=== PATIENT | female | born 1950 | race Caucasian/White ===

== ENCOUNTER 2021-02-18 15:40 | Outpatient (CLI) | payer MEDICARE, SELFPAY ==
--- NOTE | ~2021-02-18 | MM_ITS ---
EXAMINATION: MM screening joyce BI w oneyda HISTORY: Screening TECHNIQUE: Craniocaudal and mediolateral oblique 3-D tomosynthesis images were obtained and synthetic 2-D images were generated. CAD analysis was submitted and interpreted. COMPARISON: Comparison to multiple prior studies sequentially, with oldest reviewed study dated 06/13. BREAST PARENCHYMAL COMPOSITION: The breasts are heterogeneously dense, which may obscure small masses . FINDINGS: There is no evidence of suspicious mass, calcification, or architectural distortion to sugg est malignancy in either breast. There has been no suspicious interval change. IMPRESSION: 1. No mammographic evidence of malignancy. 2. Recommend routine screening mammography in one year. BI-RADS Category 1: Negative Reviewed, dictated and finalized at location A.
== END 2021-02-18 15:41 | disposition home or self-care (01) ==
PROVIDERS: PCP Family Medicine; Visit Provider Nurse Practitioner
DX: Z12.31 Encounter for screening mammogram for malignant neoplasm of breast (principal)
CPT/HCPCS: 77063; 77067

== ENCOUNTER → 2021-03-28 11:48 | Outpatient (CLI) | payer MEDICARE, SELFPAY ==
--- NOTE | ~2021-03-28 | XR_ITS ---
EXAMINATION: XR shoulder RT min 2V DATE: 03/28/2021 12:36 INDICATION: Right shoulder pain post recent fall TECHNIQUE: AP internally and externally rotated, AP oblique externally rotated and axillary views of the right shoulder were obtained. COMPARISON: None FINDINGS: Normal alignment. No fracture. Glenohumeral joint is normal. Acromioclavicular joint is normal. Soft tissues are unremarkable. Visualized portion of the lungs are clear. IMPRESSION: Negative right shoulder radiographs. Reviewed, dictated and finalized at location A.
== END ==
PROVIDERS: PCP Family Medicine; Visit Provider Nurse Practitioner
DX: M25.511 Pain in right shoulder (principal)
CPT/HCPCS: 73030

== ENCOUNTER 2021-04-09 15:10 | Outpatient (CLI) | payer MEDICARE, SELFPAY ==
--- NOTE | ~2021-04-09 | DEXA_ITS ---
Bone Density Report Name: Antony Harp Age: 70 Sex: Female Ethnicity: White Date of : 1950 Indication: osteopenia; cancer; hysterectomy; Referring Provider: ALBERTO, CRISTINE Study: Bone densitometry was performed. Exam Date: April 09, 2021 Accession number: [id number] Bone Density: Region BMD T-score Z-score Classification AP Spine (L1, L2, L3) 0.839 -1.6 0.3 Osteopenia Femoral Neck (Left) 0.625 -2.0 -0.3 Osteopenia Total Hip (Left) 0.741 -1.6 -0.2 Osteopenia Total Hip Bilateral Avg 0.760 -1.5 -0.1 Osteopenia Femoral Neck (Right) 0.648 -1.8 -0.1 Osteopenia Total Hip (Right) 0.778 -1.3 0.1 Osteopenia World Health Organization criteria for BMD impression classify patients as: Normal (T-score at or above -1.0), Osteopenia (T-score between -1.0 and -2.5), or Osteoporosis (T-score at or below -2.5). 10-year Fracture Risk(1): Major Osteoporotic Fracture 11% Hip Fracture 1.9% Reported Risk Factors: [place] (), Neck BMD=0.625, BMI=24.2 (1) FRAX(R) Version 3.08. Fracture probability calculated for an untreated patient. Fracture probability may be lower if the patient has received treatment. Previous Exams: Region Exam Age BMD T-score BMD Change BMD Change Date g/cm2 vs Baseline vs Previous AP Spine(L1, L2, L3) 04/09/2021 70 0.839 -1.6 0.044(5.5%)# 0.060(7.6%)* 02/15/2017 66 0.780 -2.2 -0.016(-2.0%)# -0.016(-2.0%)# 07/13/2013 62 0.795 -2.0 Total Hip(Left) 04/09/2021 70 0.741 -1.6 -0.013(-1.7%)# -0.062(-7.7%)* 02/15/2017 66 0.803 -1.1 0.049(6.5%)# 0.049(6.5%)# 07/13/2013 62 0.754 -1.5 Total Hip(Right) 04/09/2021 70 0.778 -1.3 0.042(5.7%)# -0.010(-1.2%) 02/15/2017 66 0.787 -1.3 0.052(7.0%)# 0.052(7.0%)# 07/13/2013 62 0.736 -1.7 *Denotes significance at 95% confidence level, LSC for AP Spine = 0.022 g/cm2, LSC for Total Hip = 0.027 g/cm2 Clinical Information Provided by Patient: Has used the following medications: Vitamin D Has the following medical conditions: Cancer, Hysterectomy Patient maximum height was 65 Menopause Age: 53 No regular weight bearing exercise Drinks caffeinated beverages Onset of menses at age 15 Number of children 3 Impression: The patient has low bone mass, based on the Left Femoral Neck T-score. The patient has an estimated ten-year risk of hip fracture of 1.9% and an estimated ten-year risk of major fracture of 11%, based on the WHO FR
== END 2021-04-09 15:11 | disposition home or self-care (01) ==
LOC: ANHIMG 15:18
PROVIDERS: PCP Family Medicine; Visit Provider Nurse Practitioner
DX: M85.88 Other specified disorders of bone density and structure, other site (principal)
CPT/HCPCS: 77080

== ENCOUNTER 2021-05-23 08:20 | Outpatient (CLI) | payer MEDICARE, SELFPAY ==
--- NOTE | ~2021-05-23 | MR_ITS ---
EXAMINATION: MR shoulder RT wo con DATE: 05/23/2021 09:39 INDICATION: Right shoulder pain TECHNIQUE: Magnetic resonance imaging (MRI) of the right shoulder was performed without intravenous c ontrast. Sequences included axial PD-weighted FS FSE, coronal oblique PD-weighted FS FSE, coronal obl ique T2-weighted FS FSE, sagittal PD-weighted FS FSE, and sagittal T1-weighted SE. COMPARISON: None. FINDINGS: Coracoacromial arch: The acromion undersurface is curved in morphology (type II). The coracoacromial ligament is normal. M ild acromioclavicular osteoarthritis. Rotator cuff: Severe supraspinatus and moderate infraspinatus tendinopathy without discrete tear. Mild subscapulari s tendinopathy without discrete tear. Teres minor tendon is normal. Normal rotator cuff muscle bulk a nd signal. Biceps tendon, glenoid labrum and glenohumeral cartilage: Mild tendinopathy of the long head biceps tendon with longitudinal split tear at the level of the int ertubercular groove. Circumferential tearing of the glenoid labrum most severe posterior superiorly w here the labrum has a thickened macerated appearance with diffuse irregular increased signal. Deep ch ondral ulceration at the central aspect of the glenoid and along the inferomedial to superomedial asp ect of the humeral head. Fluid: Moderate-sized glenohumeral joint effusion which extends into the long head biceps tendon sheath. The re is edema surrounding the tendon sheath suggesting a component of superimposed tenosynovitis. There are several flat intermediate signal intensity likely loose chondral fragments scattered throughout the axillary, posterior and deep subscapular recesses of the glenohumeral joint. Small amount of flui d in the subacromial/subdeltoid bursa consistent with mild bursitis. Bones: Bone alignment is normal. No fracture or pathologic marrow replacing process. Mild cystic change and surrounding edema along the middle facet of the greater tuberosity and along the medial margin of the lesser tuberosity, likely related to rotator cuff disease. IMPRESSION: 1. Severe supraspinatus, moderate infraspinatus and mild subscapularis tendinopathy without discrete tear. 2. Moderate glenohumeral osteoarthritis with extensive deep chondral ulceration at the glenoid and hu meral head and likely loose chondral fragments scattered within a moderate-sized glenohumeral joint e ffusion. Line 3. Circumferential tearing of the glenoid labrum. 4. Mild tendinopathy and longitudinal split tearing of the long head biceps tendon. 4. Mild subacromial/subdeltoid bursitis. Reviewed, dictated and finalized at location A. IMPRESSION: 1. Severe supraspinatus, moderate infraspinatus and mild subscapularis tendinop athy without discrete tear. 2. Moderate glenohumeral osteoarthritis with extensive deep chondral ulceration at the glenoid and humeral head and likely loose chondral fragments scattered within a moderate-sized glenohumeral joint effusion. Line 3. Circumferential tearing of the glenoid labrum. 4. Mild tendinopathy and longitudinal split tearing of the long head biceps ten don. 4. Mild subacromial/subdeltoid bursitis.
== END 2021-05-23 08:21 | disposition home or self-care (01) ==
LOC: ANHIMG 08:24
PROVIDERS: PCP Family Medicine; Visit Provider Family Medicine
DX: M19.011 Primary osteoarthritis, right shoulder (principal); M75.51 Bursitis of right shoulder
CPT/HCPCS: 73221

== ENCOUNTER 2021-08-12 01:04 | Day surgery (SDC) | payer MEDICARE, SELFPAY ==
[2021-07-25 13:37] VITALS: BMI 24.5
--- NOTE | 2021-08-11 14:06 | WPDANESEPPF ---
Anes - Initial Pre Proc Eval Procedure: Operation Date: 08/12/21 08:00 Proposed Procedures p Screening Colonoscopy - Adan Vargas MD Date/Time: 08/11/21 14:06 Surgeon: Adan Vargas MD Pre Op Diagnosis: hx of colon polyps Patient Data Age: 70 Gender: F Height: 1.65 m Weight: 66.8 kg Allergies Allergy/AdvReac Type Severity Reaction Status Date / Time metoclopramide Allergy Unknown Unknown Verified 08/12/21 06:50 Home Medications Medication Instructions Recorded Confirmed Type atomoxetine 10 mg capsule 30 mg PO DAILY cap 06/05/20 07/25/21 History duloxetine 30 mg capsule,delayed 90 mg PO DAILY cap 06/05/20 07/25/21 History release omega-3 fatty acids 1,000 mg 1,000 mg PO DAILY 06/05/20 07/25/21 History capsule zoledronic acid 5 mg/100 mL in 5 mg IVPB .[id number] ml 02/25/21 07/25/21 History mannitol 5 %-water intravenous piggybck lisinopril 5 mg tablet 5 mg PO DAILY #90 tablet 04/15/21 07/25/21 Rx oxygen-air delivery systems MISCELLANEOUS PRN 06/19/21 07/22/21 History [Horizon Nasal Cpap System] vit C,U-Hs-afncu-lutein-zeaxan 1 cap PO DAILY 06/19/21 07/25/21 History [PreserVision AREDS-2] cholecalciferol (vitamin D3) 1,250 1,250 mcg PO MONTHLY #3 cap 07/24/21 07/25/21 Rx mcg (50,000 unit) capsule atorvastatin 20 mg tablet 20 mg PO QHS #90 tablet 07/29/21 08/12/21 Rx Patient hx anesthesia problems: none Family hx anesthesia problems: none Results Review: All pre-operative results and documents have been reviewed as part of the pre-operative evaluation. [facility] Past Medical History Medical History (Updated 08/11/21 @ 14:07 by Sarthak Rehman MD) Anxiety Arthritis Arthritis of shoulder region, right, degenerative Attention deficit disorder Back pain with history of spinal surgery February 24, 2019 June 15, 2019 Chronic seasonal allergic rhinitis due to pollen Essential (primary) hypertension History of colon polyps History of melanoma Labral tear of long head of right biceps tendon Major depressive disorder, single episode, unspecified Obstructive sleep apnea Osteopenia Primary generalized (osteo)arthritis Skin cancer Sleep apnea Vision loss Vitamin D deficiency, unspecified Surgical History Surgical History H/O excision of ganglion cyst 1998 - left ring finger History of appendectomy 1979 History of bladder repair surgery 2003 - due to surgical trauma during hysterectomy History of cataract extraction with lens replacement 2015 - Right History of cervical spinal surgery 2013 - Nerve ablation of C - 2,3,4 History of cholecystectomy 2007 History of foot surgery 2010 - cheilectomy Dr. Boo Cespedes History of hysterectomy 2003 History of lumbar fusion 02/2019 and 06/2019 - L5-S1 fusion History of melanoma excision 2004 - right ankle Malignant 2004 - Left groin Benign History of stem cell transplant 2018 - Left shoulder History of tonsillectomy 1975 History of tubal ligation 1979 Hx of LASIK 2005 - b/l eyes Family History Family History Father Malignant neoplasm of prostate Polio Mother Alzheimer disease Sibling Rectal cancer Suicide Other Suicide Grandparent Alcoholism Social History Social History Smoking status: Never smoker Second hand tobacco smoke exposure: No Alcohol intake: current Alcohol use details: with dinner Substance use: never Substance use type: does not use Living arrangements: with family Gender identity (if verbalized by the patient): Female Spiritual care concerns: No Anes - Eval Final PreProcedure Day of Procedure 08/11/21 14:06 Patient weight: overweight Heart: regular rate and rhythm Lungs: clear to auscultation and normal air movement Airway: Mallampati scale class II
[2021-08-12 06:52] VITALS: BP 132/86; PULSE 73; RESP 18; TEMP 36.1; O2SAT 100
[2021-08-12] MEDS: LACTATED RINGERS 1,000 ML 150 ML IV CONT (07:10)
--- NOTE | 2021-08-12 07:56 | PM.HPGS ---
History of Present Illness History of Present Illness Consent: Risks, benefits, and alternatives have been discussed and questions answered. Patient agrees to proceed with procedure. Chief complaint: hx of colon polyps Narrative: Antony Harp is a 70 year old female with colon polyps and sister with rectal cancer, she has been getting colonoscopies every 3 years Review of Systems Constitutional: Constitutional: Denies headache(s) and Denies weakness Eyes: Eyes: Denies blurry vision ENT: Reports Normal hearing present, Denies headache(s) and Denies neck pain Cardiovascular: Cardiovascular: Denies chest pain and Denies dyspnea Respiratory: Respiratory: Denies dyspnea Gastrointestinal: Gastrointestinal: Reports no additional gastrointestinal complaints Genitourinary: Genitourinary: Denies dysuria Musculoskeletal: Musculoskeletal: Denies neck pain Integumentary/Breasts: Skin/Breast: Denies dry skin Neurologic: Reports Normal hearing present, Denies headache(s) and Denies weakness Psychiatric: Psychiatric: Denies anxiety Endocrine: Endocrine: Denies change in body appearance Hematologic/Lymphatic: Hematologic/Lymphatic: Denies easy bleeding Allergic/Immunologic: Allergic/Immunologic: Denies urticaria PMFSH Past Medical History Medical History (Updated 08/12/21 @ 07:57 by Adan Vargas MD) Adenomatous colon polyp Anxiety Arthritis Arthritis of shoulder region, right, degenerative Attention deficit disorder Back pain with history of spinal surgery February 24, 2019 June 15, 2019 Chronic seasonal allergic rhinitis due to pollen Essential (primary) hypertension History of colon polyps History of melanoma Labral tear of long head of right biceps tendon Major depressive disorder, single episode, unspecified Obstructive sleep apnea Osteopenia Primary generalized (osteo)arthritis Skin cancer Sleep apnea Vision loss Vitamin D deficiency, unspecified Surgical History Surgical History H/O excision of ganglion cyst 1998 - left ring finger History of appendectomy 1979 History of bladder repair surgery 2003 - due to surgical trauma during hysterectomy History of cataract extraction with lens replacement 2015 - Right History of cervical spinal surgery 2013 - Nerve ablation of C - 2,3,4 History of cholecystectomy 2007 History of foot surgery 2010 - cheilectomy Dr. Boo Cespedes History of hysterectomy 2004 History of lumbar fusion 02/2019 and 06/2019 - L5-S1 fusion History of melanoma excision 2005 - right ankle Malignant 2005 - Left groin Benign History of stem cell transplant 2019 - Left shoulder History of tonsillectomy 1975 History of tubal ligation 1979 Hx of LASIK 2005 - b/l eyes Family History Family History Father Malignant neoplasm of prostate Polio Mother Alzheimer disease Sibling Rectal cancer Suicide Other Suicide Grandparent Alcoholism Social History Social History Smoking status: Never smoker Second hand tobacco smoke exposure: No Alcohol intake: current Alcohol use details: with dinner Substance use: never Substance use type: does not use Living arrangements: with family Gender identity (if verbalized by the patient): Female Spiritual care concerns: No Meds Home Medications and Allergies Home Medications Medication Instructions Recorded Confirmed Type atomoxetine 10 mg capsule 30 mg PO DAILY cap 06/05/20 07/25/21 History duloxetine 30 mg capsule,delayed 90 mg PO DAILY cap 06/05/20 07/25/21 History release omega-3 fatty acids 1,000 mg 1,000 mg PO DAILY 06/05/20 07/25/21 History capsule zoledronic acid 5 mg/100 mL in 5 mg IVPB .[id number] ml 02/25/21 07/25/21 History mannitol 5 %-water intravenous piggybck lisinopril 5
[2021-08-12 08:39] VITALS: BP 126/76; PULSE 82; RESP 24; O2SAT 98
[2021-08-12 08:49] VITALS: BP 115/74; PULSE 70; RESP 19; O2SAT 100
[2021-08-12 08:59] VITALS: BP 130/78; PULSE 72; RESP 21; O2SAT 100
== END 2021-08-12 09:09 | disposition home or self-care (01) ==
PROVIDERS: PCP Family Medicine; Visit Provider Internal Medicine Gastroenterology
PROC: 0DJD8ZZ Inspection of Lower Intestinal Tract, Via Natural or Artificial Opening Endoscopic (ICD-10-PCS; CPT 45378; principal; 2021-08-12 08:00)
DX: Z12.11 Encounter for screening for malignant neoplasm of colon (principal); D12.2 Benign neoplasm of ascending colon; D12.3 Benign neoplasm of transverse colon; D12.4 Benign neoplasm of descending colon; K63.5 Polyp of colon; K57.30 Diverticulosis of large intestine without perforation or abscess without bleeding; Z80.0 Family history of malignant neoplasm of digestive organs; I10 Essential (primary) hypertension; G47.33 Obstructive sleep apnea (adult) (pediatric); F41.8 Other specified anxiety disorders; E55.9 Vitamin D deficiency, unspecified; Z98.1 Arthrodesis status
CPT/HCPCS: 45385; 88305; J2704; J7120

== ENCOUNTER 2021-10-28 01:37 | Day surgery (SDC) | payer MEDICARE, SELFPAY ==
[2021-10-16 13:51] VITALS: BMI 23.8
[2021-10-28 11:28] VITALS: BP 147/98; PULSE 84; RESP 16; TEMP 36.4; O2SAT 100
[2021-10-28] MEDS: LACTATED RINGERS 1,000 ML 150 ML IV CONT (11:32)
--- NOTE | 2021-10-28 11:32 | PM.HPGS ---
History of Present Illness History of Present Illness Consent: Risks, benefits, and alternatives have been discussed and questions answered. Patient agrees to proceed with procedure. Chief complaint: epigastric pain, bloating Narrative: Antony Harp is a 70 year old female with bloating, fullness after eating and discomfort. Recent colonoscopy with several TA polyps removed. Serology for celiac negative. Review of Systems Constitutional: Constitutional: Denies headache(s) and Denies weakness Eyes: Eyes: Denies blurry vision ENT: Reports Normal hearing present, Denies headache(s) and Denies neck pain Cardiovascular: Cardiovascular: Denies chest pain and Denies dyspnea Respiratory: Respiratory: Denies dyspnea Gastrointestinal: Gastrointestinal: Reports no additional gastrointestinal complaints Genitourinary: Genitourinary: Denies dysuria Musculoskeletal: Musculoskeletal: Denies neck pain Integumentary/Breasts: Skin/Breast: Denies dry skin Neurologic: Reports Normal hearing present, Denies headache(s) and Denies weakness Psychiatric: Psychiatric: Denies anxiety Endocrine: Endocrine: Denies change in body appearance Hematologic/Lymphatic: Hematologic/Lymphatic: Denies easy bleeding Allergic/Immunologic: Allergic/Immunologic: Denies urticaria PMFSH Past Medical History Medical History Adenomatous colon polyp Anxiety Arthritis Arthritis of shoulder region, right, degenerative Attention deficit disorder Back pain with history of spinal surgery February 24, 2019 June 15, 2019 Chronic seasonal allergic rhinitis due to pollen Essential (primary) hypertension History of colon polyps History of melanoma Labral tear of long head of right biceps tendon Major depressive disorder, single episode, unspecified Obstructive sleep apnea Osteopenia Primary generalized (osteo)arthritis Skin cancer Sleep apnea Vision loss Vitamin D deficiency, unspecified Surgical History Surgical History H/O excision of ganglion cyst 1998 - left ring finger History of appendectomy 1979 History of bladder repair surgery 2003 - due to surgical trauma during hysterectomy History of cataract extraction with lens replacement 2016 - Right History of cervical spinal surgery 2014 - Nerve ablation of C - 2,3,4 History of cholecystectomy 2007 History of foot surgery 2010 - cheilectomy Dr. Boo Cespedes History of hysterectomy 2004 History of lumbar fusion 02/2019 and 06/2019 - L5-S1 fusion History of melanoma excision 2005 - right ankle Malignant 2005 - Left groin Benign History of stem cell transplant 2019 - Left shoulder History of tonsillectomy 1976 History of tubal ligation 1979 Hx of LASIK 2005 - b/l eyes Family History Family History Father Malignant neoplasm of prostate Polio Mother Alzheimer disease Sibling Rectal cancer Suicide Other Suicide Grandparent Alcoholism Social History Social History Smoking status: Never smoker Second hand tobacco smoke exposure: No Alcohol intake: current Drinks per week: 8 Alcohol use details: with dinner Substance use: never Substance use type: does not use Living arrangements: with family Gender identity (if verbalized by the patient): Female Spiritual care concerns: No Meds Home Medications and Allergies Home Medications Medication Instructions Recorded Confirmed Type atomoxetine 10 mg capsule 30 mg PO DAILY cap 06/05/20 10/16/21 History duloxetine 30 mg capsule,delayed 90 mg PO DAILY cap 06/05/20 10/16/21 History release omega-3 fatty acids 1,000 mg 1,000 mg PO DAILY 06/05/20 10/16/21 History capsule zoledronic acid 5 mg/100 mL in 5 mg IVPB .[id number] ml 02/25/21 10/16/21 Hi
--- NOTE | 2021-10-28 11:32 | WPDANESEPPF ---
Anes - Initial Pre Proc Eval Procedure: Operation Date: 10/28/21 12:45 Proposed Procedures p Esophagogastroduodenoscopy - Adan Vargsa MD Date/Time: 10/28/21 11:32 Surgeon: Adan Vargas MD Pre Op Diagnosis: epigastric pain, bloating Patient Data Age: 70 Gender: F Height: 1.65 m Weight: 67.9 kg Last Vital Signs Temp 97.6 F 10/28/21 11:28 Pulse 84 10/28/21 11:28 Resp 16 10/28/21 11:28 BP 147/98 H 10/28/21 11:28 Pulse Ox 100 10/28/21 11:28 Allergies Allergy/AdvReac Type Severity Reaction Status Date / Time No Known Allergies Allergy Verified 10/16/21 13:48 Home Medications Medication Instructions Recorded Confirmed Type atomoxetine 10 mg capsule 30 mg PO DAILY cap 06/05/20 10/16/21 History duloxetine 30 mg capsule,delayed 90 mg PO DAILY cap 06/05/20 10/16/21 History release omega-3 fatty acids 1,000 mg 1,000 mg PO DAILY 06/05/20 10/16/21 History capsule zoledronic acid 5 mg/100 mL in 5 mg IVPB .[id number] ml 02/25/21 10/16/21 History mannitol 5 %-water intravenous piggybck lisinopril 5 mg tablet 5 mg PO DAILY #90 tablet 04/15/21 10/16/21 Rx oxygen-air delivery systems 1 % MISCELLANEOUS PRN 06/19/21 09/11/21 History [Horizon Nasal Cpap System] vit C,K-Vs-fedcw-lutein-zeaxan 1 cap PO DAILY 06/19/21 10/16/21 History [PreserVision AREDS-2] cholecalciferol (vitamin D3) 1,250 1,250 mcg PO MONTHLY #3 cap 07/24/21 10/16/21 Rx mcg (50,000 unit) capsule Patient hx anesthesia problems: none Family hx anesthesia problems: none Results Review: All pre-operative results and documents have been reviewed as part of the pre-operative evaluation. [facility] Past Medical History Medical History Adenomatous colon polyp Anxiety Arthritis Arthritis of shoulder region, right, degenerative Attention deficit disorder Back pain with history of spinal surgery February 24, 2019 June 15, 2019 Chronic seasonal allergic rhinitis due to pollen Essential (primary) hypertension History of colon polyps History of melanoma Labral tear of long head of right biceps tendon Major depressive disorder, single episode, unspecified Obstructive sleep apnea Osteopenia Primary generalized (osteo)arthritis Skin cancer Sleep apnea Vision loss Vitamin D deficiency, unspecified Surgical History Surgical History H/O excision of ganglion cyst 1998 - left ring finger History of appendectomy 1979 History of bladder repair surgery 2003 - due to surgical trauma during hysterectomy History of cataract extraction with lens replacement 2015 - Right History of cervical spinal surgery 2013 - Nerve ablation of C - 2,3,4 History of cholecystectomy 2007 History of foot surgery 2010 - cheilectomy Dr. Boo Cespedes History of hysterectomy 2004 History of lumbar fusion 02/2019 and 06/2019 - L5-S1 fusion History of melanoma excision 2004 - right ankle Malignant 2004 - Left groin Benign History of stem cell transplant 2018 - Left shoulder History of tonsillectomy 1975 History of tubal ligation 1979 Hx of LASIK 2005 - b/l eyes Family History Family History Father Malignant neoplasm of prostate Polio Mother Alzheimer disease Sibling Rectal cancer Suicide Other Suicide Grandparent Alcoholism Social History Social History Smoking status: Never smoker Second hand tobacco smoke exposure: No Alcohol intake: current Drinks per week: 8 Alcohol use details: with dinner Substance use: never Substance use type: does not use Living arrangements: with family Gender identity (if verbalized by the patient): Female Spiritual care concerns: No Anes - Eval Final PreProcedure Day of Procedure
[2021-10-28 11:51] VITALS: BP 132/80; PULSE 76; RESP 16; O2SAT 93
[2021-10-28 12:01] VITALS: BP 137/81; PULSE 72; RESP 20; O2SAT 100
[2021-10-28 12:11] VITALS: BP 129/79; PULSE 66; RESP 16; O2SAT 98
== END 2021-10-28 12:17 | disposition home or self-care (01) ==
PROVIDERS: PCP Family Medicine; Visit Provider Internal Medicine Gastroenterology
PROC: 0DJ08ZZ Inspection of Upper Intestinal Tract, Via Natural or Artificial Opening Endoscopic (ICD-10-PCS; CPT 43235; principal; 2021-10-28 12:45)
DX: K29.50 Unspecified chronic gastritis without bleeding (principal); I10 Essential (primary) hypertension; F41.8 Other specified anxiety disorders; G47.33 Obstructive sleep apnea (adult) (pediatric); E55.9 Vitamin D deficiency, unspecified; Z98.1 Arthrodesis status
CPT/HCPCS: 43239; 88305; J2704; J7120

== ENCOUNTER 2021-11-25 07:24 | Outpatient (CLI) | payer MEDICARE, SELFPAY ==
--- NOTE | ~2021-11-25 | CT_ITS ---
EXAMINATION: CT abdomen pelvis w con INDICATION: Generalized abdominal pain TECHNIQUE: Computed tomographic images of the abdomen and pelvis were obtained after the administrati on of 100 cc of Omnipaque 350 intravenous contrast. The dose-length product (DLP) was 397.70 mGy-cm. Automated exposure control and iterative reconstruction technique were employed. COMPARISON: 03/15/2019 FINDINGS: Pectus excavatum is noted. The heart size is normal. There is mild atelectasis of the visua lized lung bases. The gallbladder is surgically absent. There is mild enlargement of the common bile duct and central intrahepatic ducts which is likely due to post cholecystectomy state. The liver, spl een, pancreas, and adrenal glands are normal. The right kidney is unremarkable. There is a 10 mm soft tissue attenuation exophytic lesion projecting from the anterior upper pole of the left kidney. No p athologically enlarged abdominal or pelvic lymph nodes are identified. No pathologically enlarged abd ominal or pelvic lymph nodes are identified. There is no free intraperitoneal gas or evidence of carmela l obstruction. Areas of luminal narrowing in the ascending colon likely reflect colonic peristalsis. There is a moderate volume of colonic stool. Changes of anterior and posterior fusion are noted at L5 -S1. IMPRESSION: 1. No CT correlate for the patient's symptoms. 2. Indeterminate left kidney mass. Follow-up CT or MRI without and with contrast in 6-12 months is re commended. Reviewed, dictated and finalized at location F. RPRISE ARCHITECT IMPRESSION: 1. No CT correlate for the patient's symptoms. 2. Indeterminate left kidney mass. Follow-up CT or MRI without and with contras t in 6-12 months is recommended.
[2021-11-25 08:00] LABS: Estimated Glomerular Filt Rate > 60
== END 2021-11-25 07:25 | disposition home or self-care (01) ==
PROVIDERS: PCP Family Medicine; Visit Provider Nurse Practitioner Family
DX: R10.84 Generalized abdominal pain (principal); N28.89 Other specified disorders of kidney and ureter
CPT/HCPCS: 74177; Q9967

== ENCOUNTER 2022-01-08 10:21 | Outpatient (CLI) | payer MEDICARE, SELFPAY ==
--- NOTE | ~2022-01-08 | XR_ITS ---
EXAMINATION: XR abdomen/kub 1V EXAM DATE: 01/08/2022 10:51 INDICATION: Left renal mass. TECHNIQUE: Frontal projection(s) of the abdomen for interpretation. Correlation is made to CT abdomen pelvis same date. FINDINGS: Cholecystectomy clips, and L5-S1 fusion hardware. No suspicious soft tissue calcifications identified. Expected amount of colonic stool. Small tube shaped metallic or electronic device overly ing ascending colon, something ingested. IMPRESSION: 1. Unremarkable renal contours. Reviewed, dictated and finalized at location A.
--- NOTE | ~2022-01-08 | CT_ITS ---
EXAMINATION: CT abdomen pelvis wo/w con EXAM DATE: 01/08/2022 11:06 INDICATION: Left renal mass. TECHNIQUE: Spiral CT of the abdomen without contrast followed by both abdomen and pelvis with 100 cc intravenous Omnipaque 350. Axial, coronal and sagittal images of the abdomen and pelvis were reviewe d. The dose-length product (DLP) for this examination was 474.13 mGy-cm. The exposure was tailored according to patient size (auto mA exposure control), and iterative reconstruction (ASIR) was used as additional dose reduction technique. Comparison is made to prior examination from 11/25/2021. FINDINGS: Previously described 10 mm partially exophytic left renal lesion at the superior pole measu res about 8 Hounsfield units on precontrast study and about 26 on the postcontrast study. Simple cyst is favored over slightly homogeneously enhancing renal cell cancer but this test does not conclusive ly prove that, sometimes difficult to confirm cyst and lesion this small. The liver, spleen, adrenal glands and pancreas are unremarkable. There are cholecystectomy clips. P ortal and splenic veins are patent. Kidneys enhance symmetrically. There is no hydronephrosis. Th e uterus is not identified and has likely been surgically resected. The bladder is unremarkable. Th ere is no retroperitoneal or pelvic lymphadenopathy. There are no findings to suggest appendicitis. There is mild sigmoid colonic diverticulosis. There i s no adjacent inflammatory change to suggest diverticulitis. The stomach and small bowel are unremar kable. There is expected amount of colonic stool. No free intraperitoneal gas. There is pectus e xcavatum. The lung bases are unremarkable. L5-S1 fusion hardware. IMPRESSION: 1. Lesion superior pole left kidney most likely cyst but can't conclusively prove probably due to sm all size. Uncertain whether or not this could be visualized by ultrasound. Alternatively consider 6-1 2 month follow-up CT or MRI examination. 2. Mild sigmoid colonic diverticulosis. Reviewed, dictated and finalized at location A. IMPRESSION: 1. Lesion superior pole left kidney most likely cyst but can't conclusively pr ove probably due to small size. Uncertain whether or not this could be visualiz ed by ultrasound. Alternatively consider 6-12 month follow-up CT or MRI examina tion. 2. Mild sigmoid colonic diverticulosis.
[2022-01-08 10:58] LABS: Estimated Glomerular Filt Rate > 60
== END 2022-01-08 10:22 | disposition home or self-care (01) ==
PROVIDERS: PCP Family Medicine; Visit Provider Nurse Practitioner Adult Health
DX: N28.89 Other specified disorders of kidney and ureter (principal); K57.30 Diverticulosis of large intestine without perforation or abscess without bleeding
CPT/HCPCS: 74018; 74178; Q9967

== ENCOUNTER 2022-01-13 09:57 | Outpatient (CLI) | payer MEDICARE, SELFPAY ==
--- NOTE | ~2022-01-13 | NM_ITS ---
EXAM: NM gastric emptying study DATE: 01/13/2022 15:34 INDICATION: Early satiety. TECHNIQUE: A gastric emptying study was performed using the methodology of Froilan ESCOBEDO, et al. J Nucl Med 2007; 48:568-572. The patient was given a meal consisting of 2 scrambled eggs labeled with 1 mCi Tc-99m sulfur colloid, 2 slices of toast, two packages of jam, and approximately 120 mL of water. Si multaneous anterior and posterior 1-min images of the abdomen were obtained with the patient supine a t multiple time points over a total period of 4 hours. The geometric mean of anterior and posterior v iews was determined, and the percentage retention was calculated for each time point. COMPARISON: CT abdomen and pelvis 01/08/2022 FINDINGS: Gastric retention of the radiotracer-labeled meal was 60%, 43%, and 12% at the 1-hour, 2-h our, and 4-hour time points, respectively. With this technique, apparent rapid gastric emptying is nicolas ggested by <30% gastric retention at 1 hour. Delayed gastric emptying is defined by gastric retention of >90% at 1 hour, >60% retention at 2 hours, or >10% retention at 4 hours. IMPRESSION: 1. Delayed gastric emptying. Reviewed, dictated and finalized at location A.
== END 2022-01-13 09:58 | disposition home or self-care (01) ==
PROVIDERS: PCP Family Medicine; Visit Provider Nurse Practitioner Family
DX: R68.81 Early satiety (principal); K30 Functional dyspepsia
CPT/HCPCS: 78264; A9541

== ENCOUNTER 2022-04-08 12:32 | Outpatient (CLI) | payer MEDICARE, SELFPAY ==
--- NOTE | ~2022-04-08 | MM_ITS ---
EXAMINATION: MM screening joyce BI w oneyda HISTORY: Screening TECHNIQUE: Craniocaudal and mediolateral oblique 3-D tomosynthesis images were obtained and synthetic 2-D images were generated. CAD analysis was submitted and interpreted. COMPARISON: Comparison to multiple prior studies sequentially, with oldest reviewed study dated 06/13. BREAST PARENCHYMAL COMPOSITION: Breast composed of scattered areas of fibroglandular density FINDINGS: There is no evidence of suspicious mass, calcification, or architectural distortion to sugg est malignancy in either breast. There has been no suspicious interval change. IMPRESSION: 1. No mammographic evidence of malignancy. 2. Recommend routine screening mammography in one year. BI-RADS Category 1: Negative Reviewed, dictated and finalized at location A.
== END 2022-04-08 12:33 | disposition home or self-care (01) ==
LOC: ANHIMG 12:36
PROVIDERS: PCP Family Medicine; Visit Provider Obstetrics & Gynecology Gynecology
DX: Z12.31 Encounter for screening mammogram for malignant neoplasm of breast (principal)
CPT/HCPCS: 77063; 77067

== ENCOUNTER 2022-08-05 09:28 | Outpatient (CLI) | payer MEDICARE, SELFPAY ==
[2022-08-05 19:13] LABS: Eosinophils Absolute Auto 0.1 K/mm3 (0-0.3); Eosinophils Percent Auto 2.2 % (0-4.4); Hematocrit 43.3 % (37.0-47.0); Hemoglobin 14.4 g/dL (12.0-15.0); Immature Granulocyte Absolute 0.01 K/mm3 (0.00-0.031); Immature Granulocyte Percent A 0.2 % (0-0.5); Lymphocytes Absolute Auto 1.95 K/mm3 (0.9-3.2); Lymphocytes Percent Auto 48.3 % (18.3-44.2); Mean Corpuscular HGB Conc 33.3 g/dl (32-36); Mean Corpuscular Hemoglobin 31.9 pg (26-34); Mean Platelet Volume 9.6 fl (7.4-10.4); Monocytes Absolute Auto 0.4 K/mm3 (0.1-0.6); Monocytes Percent Auto 9.9 % (2.6-8.5); Neutrophils Absolute Auto 1.6 K/mm3 (1.3-6.7); Neutrophils Percent Auto 38.4 % (45.5-73.1); Platelet Count Result 196 k/mm3 (150-375); Red Blood Count 4.51 M/mm3 (4.2-5.4); Red Cell Distribution Width 13.7 % (11.5-14.5)
[2022-08-05 19:41] LABS: Alanine Aminotransferase 10 U/L (6-35); Albumin Level 4.5 g/dL (3.5-5.1); Alkaline Phosphatase 71 U/L (38-126); Anion Gap 10 mmol/L (8-16); Aspartate Amino Transferase 30 U/L (14-36); Bilirubin,Total 0.6 mg/dL (0.2-1.3); Blood Urea Nitrogen 13 mg/dL (7-17); Calcium 9.2 mg/dL (8.4-10.2); Carbon Dioxide 27 mmol/L (22-30); Chloride 99 mmol/L (98-107); Cholesterol 257 mg/dL (0-200); Estimated Glomerular Filt Rate > 60; Glucose 93 mg/dL (65-110); HDL Direct 64 mg/dL; Potassium 4.4 mmol/L (3.4-5.0); Sodium 136 mmol/L (137-145); Triglycerides 138 mg/dL (<150)
[2022-08-05 19:52] LABS: LDL Cholesterol Direct 144 mg/dL
[2022-08-05 20:05] LABS: Vitamin D 25 Hydroxy 39.5 ng/mL
== END 2022-08-05 09:29 | disposition home or self-care (01) ==
LOC: ANHGOSHLAB 09:35
PROVIDERS: PCP Family Medicine; Visit Provider Family Medicine
DX: Z00.00 Encounter for general adult medical examination without abnormal findings (principal); G25.2 Other specified forms of tremor; I10 Essential (primary) hypertension; E78.5 Hyperlipidemia, unspecified; E55.9 Vitamin D deficiency, unspecified; E53.8 Deficiency of other specified B group vitamins
CPT/HCPCS: 36415; 80053; 80061; 82306; 82607; 84443; 85025

== ENCOUNTER → 2022-09-07 09:46 | Outpatient (CLI) | payer MEDICARE, SELFPAY ==
--- NOTE | ~2022-09-07 | MR_ITS ---
EXAMINATION: MR abdomen wo/w con DATE: 09/07/2022 10:46 INDICATION: Left renal mass TECHNIQUE: Magnetic resonance imaging (MRI) of the abdomen was performed without and with 13 mL Multi ludy intravenous contrast. Sequences included coronal T2-weighted SS-FSE, coronal and axial FS 2D-F IESTA, axial STIR FSE, axial T2-weighted SS-FSE, axial T2-weighted FS SS-FSE, axial diffusion-weighte d SE, axial dual-echo T1-weighted FSPGR, and axial and coronal T1-weighted LAVA. Postcontrast axial T 1-weighted LAVA images were obtained in a time course. Postcontrast coronal T1-weighted LAVA images w ere obtained. COMPARISON: CT dated 01/08/2022 FINDINGS: Pectus excavatum which exerts mass effect upon the anterior wall of the right atrium. Heart size is n ormal. No pericardial or pleural effusion. Cholecystectomy clips at the gallbladder fossa. Liver is n ormal. No intra or extrahepatic biliary ductal dilation. 8 mm simple appearing cystic lesion at the b ananth of the pancreas. Pancreas is otherwise normal with normal caliber main pancreatic duct. Spleen, r ight kidney and bilateral adrenal glands are normal. No evident enhancement associated with a 1.1 cm exophytic cyst at the upper pole of the left kidney. Small region of cortical scarring at the lower p ole of the left kidney. Visualized portion of the bowels are unremarkable with no obstruction. No pat hologically enlarged abdominal lymphadenopathy. Mild thoracolumbar levocurvature with mild spondylosi s. Metallic magnetic field artifact associated with instrumentation for a combined anterior and poste rior spinal fusion at L5-S1. 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 IMPRESSION: 1. No evident enhancement such with a 1.1 cm exophytic cyst at the upper pole the left kidney corresp onding to the lesion of concern on prior CT. 2. 8 mm simple appearing cystic lesion at the body of the pancreas for which 2 year follow-up MRI wou ld be recommended. 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 No evident enhancement such with a 1.1 cm exophytic cyst at the upper pole t he left kidney corresponding to the lesion of concern on prior CT. 2. 8 mm simple appearing cystic lesion at the body of the pancreas for which 2 year follow-up MRI would be recommended.
== END ==
PROVIDERS: PCP Family Medicine; Visit Provider Nurse Practitioner Adult Health
DX: N28.89 Other specified disorders of kidney and ureter (principal); K86.2 Cyst of pancreas
CPT/HCPCS: 74183; A9577

== ENCOUNTER 2023-02-10 14:10 | Outpatient (CLI) | payer MEDICARE, SELFPAY ==
[2023-02-10 21:15] LABS: Alanine Aminotransferase 18 U/L (6-35); Albumin Level 4.5 g/dL (3.5-5.1); Alkaline Phosphatase 64 U/L (38-126); Anion Gap 4 mmol/L (8-16); Aspartate Amino Transferase 45 U/L (14-36); Bilirubin,Total 0.5 mg/dL (0.2-1.3); Blood Urea Nitrogen 15 mg/dL (7-17); Calcium 9.3 mg/dL (8.4-10.2); Carbon Dioxide 31 mmol/L (22-30); Chloride 101 mmol/L (98-107); Estimated Glomerular Filt Rate > 60; Glucose 100 mg/dL (65-110); Potassium 4.5 mmol/L (3.4-5.0); Sodium 136 mmol/L (137-145)
== END 2023-02-10 14:11 | disposition home or self-care (01) ==
LOC: ANHGOSHLAB 14:12
PROVIDERS: PCP Family Medicine; Visit Provider Family Medicine
DX: I10 Essential (primary) hypertension (principal); Z79.899 Other long term (current) drug therapy
CPT/HCPCS: 36415; 80053

== ENCOUNTER 2023-08-11 09:23 | Outpatient (CLI) | payer MEDICARE, SELFPAY ==
[2023-08-11 19:39] LABS: Basophils Percent Auto 0.6 % (0.2-1.2); Eosinophils Absolute Auto 0.1 K/mm3 (0-0.3); Immature Granulocyte Absolute 0.02 K/mm3 (0.00-0.031); Immature Granulocyte Percent A 0.4 % (0-0.5); Lymphocytes Percent Auto 32.7 % (18.3-44.2); Mean Corpuscular HGB Conc 32.6 g/dl (32-36); Mean Corpuscular Hemoglobin 31.5 pg (26-34); Mean Corpuscular Volume 96.8 fl (80-100); Mean Platelet Volume 10.2 fl (7.4-10.4); Monocytes Absolute Auto 0.5 K/mm3 (0.1-0.6); Monocytes Percent Auto 10.4 % (2.6-8.5); Neutrophils Absolute Auto 2.6 K/mm3 (1.3-6.7); Neutrophils Percent Auto 53.9 % (45.5-73.1); Platelet Count Result 178 k/mm3 (150-375); Red Blood Count 4.44 M/mm3 (4.2-5.4); White Blood Count 4.9 K/mm3 (4.5-10.0)
[2023-08-11 20:10] LABS: Alanine Aminotransferase 13 U/L (6-35); Albumin Level 4.3 g/dL (3.5-5.1); Alkaline Phosphatase 71 U/L (38-126); Anion Gap 4 mmol/L (8-16); Aspartate Amino Transferase 38 U/L (14-36); Bilirubin,Total 0.6 mg/dL (0.2-1.3); Blood Urea Nitrogen 7 mg/dL (7-17); Calcium 9.3 mg/dL (8.4-10.2); Carbon Dioxide 32 mmol/L (22-30); Chloride 98 mmol/L (98-107); Cholesterol 260 mg/dL (0-200); Estimated Glomerular Filt Rate > 60; Glucose 75 mg/dL (65-110); HDL Direct 50 mg/dL; Potassium 4.4 mmol/L (3.4-5.0); Sodium 134 mmol/L (137-145); Triglycerides 167 mg/dL (<150)
[2023-08-11 20:26] LABS: LDL Cholesterol Direct 158 mg/dL
[2023-08-11 20:30] LABS: Vitamin D 25 Hydroxy 30.1 ng/mL
== END 2023-08-11 09:24 | disposition home or self-care (01) ==
LOC: ANHGOSHLAB 09:25
PROVIDERS: PCP Family Medicine; Visit Provider Family Medicine
DX: E53.8 Deficiency of other specified B group vitamins (principal); F98.8 Other specified behavioral and emotional disorders with onset usually occurring in childhood and adolescence; I10 Essential (primary) hypertension; E55.9 Vitamin D deficiency, unspecified; E78.5 Hyperlipidemia, unspecified
CPT/HCPCS: 36415; 80053; 80061; 82306; 82607; 84443; 85025

== ENCOUNTER 2023-10-12 09:30 | Outpatient (CLI) | payer MEDICARE, SELFPAY ==
[2023-10-12 19:22] LABS: Alanine Aminotransferase 16 U/L (6-35); Albumin Level 4.5 g/dL (3.5-5.1); Alkaline Phosphatase 70 U/L (38-126); Anion Gap 6 mmol/L (8-16); Aspartate Amino Transferase 55 U/L (14-36); Bilirubin,Total 0.5 mg/dL (0.2-1.3); Blood Urea Nitrogen 17 mg/dL (7-17); Calcium 9.3 mg/dL (8.4-10.2); Carbon Dioxide 31 mmol/L (22-30); Chloride 98 mmol/L (98-107); Estimated Glomerular Filt Rate > 60; Glucose 82 mg/dL (65-110); Potassium 4.3 mmol/L (3.4-5.0); Sodium 135 mmol/L (137-145)
== END 2023-10-12 09:31 | disposition home or self-care (01) ==
LOC: ANHGOSHLAB 09:31
PROVIDERS: PCP Family Medicine; Visit Provider Family Medicine
DX: E78.5 Hyperlipidemia, unspecified (principal); Z79.899 Other long term (current) drug therapy
CPT/HCPCS: 36415; 80053

== ENCOUNTER 2023-10-27 01:53 | Day surgery (SDC) | payer MEDICARE, SELFPAY ==
[2023-10-01 09:58] VITALS: BMI 25.7
--- NOTE | 2023-10-25 09:49 | SUR.PREOP ---
Patient called regarding upcoming procedure. Reviewed preop instructions, appointment times, and procedure prep.
[2023-10-27 08:52] VITALS: BP 127/80; PULSE 88; RESP 18; TEMP 36.1; O2SAT 99
[2023-10-27] MEDS: LACTATED RINGERS 1,000 ML 150 ML IV CONT (09:02)
--- NOTE | 2023-10-27 09:12 | WPDANESEPPF ---
Anes - Initial Pre Proc Eval Procedure: Operation Date: 10/27/23 10:00 Proposed Procedures p Colonoscopy - Adan Vargas MD Date/Time: 10/27/23 09:12 Surgeon: Adan Vargas MD Pre Op Diagnosis: hx of colon polyps Patient Data Age: 72 Gender: F Height: 1.65 m Weight: 69.5 kg Last Vital Signs Temp 97 F L 10/27/23 08:52 Pulse 88 10/27/23 08:52 Resp 18 10/27/23 08:52 BP 127/80 10/27/23 08:52 Pulse Ox 99 10/27/23 08:52 O2 Del Method Room Air 10/27/23 08:52 Allergies Allergy/AdvReac Type Severity Reaction Status Date / Time No Known Allergies Allergy Verified 10/27/23 08:51 Home Medications Medication Instructions Recorded Confirmed Type zoledronic acid 5 mg/100 mL in 5 mg IV .[id number] 02/25/21 10/06/23 History mannitol 5 %-water intravenous piggybck (Reclast) oxygen-air delivery systems 1 % miscellaneous HS PRN Shortness 06/19/21 10/06/23 History [Horizon Nasal Cpap System] Of Breath vit C,G-Zw-wiizh-lutein-zeaxan 1 cap PO DAILY 06/19/21 10/06/23 History [PreserVision AREDS-2] calcium polycarbophil 625 mg 1,250 mg PO BID 01/06/22 10/06/23 History tablet (FiberCon) primidone 50 mg tablet 100 mg PO QHS 02/02/22 10/06/23 History atomoxetine 10 mg capsule 20 mg PO DAILY 08/04/22 10/06/23 History carbidopa 25 mg-levodopa 100 mg 1 tablet PO TID 08/04/22 10/06/23 History tablet duloxetine 30 mg capsule,delayed 60 mg PO DAILY 08/04/22 10/06/23 History release omega-3 fatty acids 1,000 mg See Rx Instructions PO BID 08/26/22 10/06/23 History capsule (Fish Oil Concentrate) lisinopril 5 mg tablet 5 mg PO DAILY #90 tabs 05/03/23 10/06/23 Rx cholecalciferol (vitamin D3) 50 50 mcg PO DAILY #90 tabs 05/06/23 10/06/23 Rx mcg (2,000 unit) tablet omeprazole 40 mg capsule,delayed 40 mg PO DAILY #90 caps 05/06/23 10/06/23 Rx release fluticasone propionate 50 2 spray intranasal DAILY PRN 08/10/23 10/06/23 History mcg/actuation nasal Allergy Symptoms spray,suspension (Flonase Allergy Relief) cholecalciferol (vitamin D3) 1,250 1,250 mcg PO WEEKLY #12 tabs 08/12/23 10/06/23 Rx mcg (50,000 unit) tablet rosuvastatin 10 mg tablet 10 mg PO QHS #90 tabs 08/12/23 10/06/23 Rx amitriptyline 10 mg tablet See Rx Instructions .Route 10/14/23 10/27/23 Rx .COMPLEX #180 tabs Patient hx anesthesia problems: none Family hx anesthesia problems: none Results Review: All pre-operative results and documents have been reviewed as part of the pre-operative evaluation. FOR[facility]LY [facility] Past Medical History Medical History Anxiety Arthritis Arthritis of shoulder region, right, degenerative Attention deficit disorder Back pain with history of spinal surgery February 24, 2019 June 15, 2019 Dyslipidemia Essential (primary) hypertension Gastroparesis History of colon polyps History of melanoma IBS (irritable bowel syndrome) Labral tear of long head of right biceps tendon Lesion of pancreas (~09/2022) Major depressive disorder, single episode, unspecified Obstructive sleep apnea Osteopenia Parkinsons disease Primary generalized (osteo)arthritis Skin cancer Tinnitus, bilateral Vision loss Vitamin D deficiency, unspecified Surgical History Surgical History H/O excision of ganglion cyst 1998 - left ring finger History of appendectomy 1979 History of bladder repair surgery 2003 - due to surgical trauma during hysterectomy History of cataract extraction with lens replacement 2015 - Right History of cervical spinal surgery 2013 - Nerve ablation of C - 2,3,4 History of cholecystectomy 2007 History of foot surgery 2010 - cheilectomy Dr. Boo Cespedes History of hysterectomy 2004 History of lumbar fusion 02/2019 and 06/2019 - L5-S1 fusion History of melanoma excision 2005 - right ankle Malignant 2005 - Left groin Benign
--- NOTE | 2023-10-27 09:20 | WPDHPUPDATE1 ---
History and Physical Update Update Date/Time: 10/27/23 09:20 History and Physical has been reviewed, including an updated exam of the patient. There are NO changes in the patient's condition. Risks, benefits, and alternatives have been discussed and questions answered. Patient agrees to proceed with procedure.
[2023-10-27 09:47] VITALS: BP 83/47; PULSE 68; RESP 15; O2SAT 98
[2023-10-27 09:57] VITALS: BP 97/58; PULSE 74; RESP 18; O2SAT 100
[2023-10-27 10:07] VITALS: BP 100/58; PULSE 66; RESP 18; O2SAT 100
== END 2023-10-27 10:17 | disposition home or self-care (01) ==
PROVIDERS: PCP Family Medicine; Visit Provider Internal Medicine Gastroenterology
PROC: 0DJD8ZZ Inspection of Lower Intestinal Tract, Via Natural or Artificial Opening Endoscopic (ICD-10-PCS; CPT 45378; principal; 2023-10-27 10:00)
DX: Z12.11 Encounter for screening for malignant neoplasm of colon (principal); D12.2 Benign neoplasm of ascending colon; D12.4 Benign neoplasm of descending colon; K63.5 Polyp of colon; K57.30 Diverticulosis of large intestine without perforation or abscess without bleeding; Z80.0 Family history of malignant neoplasm of digestive organs; E78.5 Hyperlipidemia, unspecified; F98.8 Other specified behavioral and emotional disorders with onset usually occurring in childhood and adolescence; G20.A1 Parkinson's disease without dyskinesia, without mention of fluctuations; G47.33 Obstructive sleep apnea (adult) (pediatric); E55.9 Vitamin D deficiency, unspecified; F41.9 Anxiety disorder, unspecified; I10 Essential (primary) hypertension; F32.9 Major depressive disorder, single episode, unspecified; M85.80 Other specified disorders of bone density and structure, unspecified site
CPT/HCPCS: 45385; 88305; J2704; J7120

== ENCOUNTER 2023-11-02 13:11 | Outpatient (CLI) | payer MEDICARE, SELFPAY ==
--- NOTE | ~2023-11-02 | MM_ITS ---
EXAMINATION: MM screening joyce BI w oneyda HISTORY: Screening TECHNIQUE: Craniocaudal and mediolateral oblique 3-D tomosynthesis images were obtained and synthetic 2-D images were generated. CAD analysis was submitted and interpreted. COMPARISON: Comparison to multiple prior studies sequentially, with oldest reviewed study dated 02/15. BREAST PARENCHYMAL COMPOSITION: There are scattered areas of fibroglandular density. FINDINGS: There is focal asymmetry laterally in the right breast on CC view. There is no mammographic evidence for malignancy in the left breast which is stable. IMPRESSION: 1. New focal asymmetry laterally in the right breast on CC view. 2. Additional mammographic views and possible breast ultrasound are recommended. BI-RADS CATEGORY 0 - INCOMPLETE STUDY, NEED ADDITIONAL IMAGING EVALUATION. 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 New focal asymmetry laterally in the right breast on CC view. 2. Additional mammographic views and possible breast ultrasound are recommended . BI-RADS CATEGORY 0 - INCOMPLETE STUDY, NEED ADDITIONAL IMAGING EVALUATION.
--- NOTE | ~2023-11-02 | DEXA_ITS ---
Bone Density Report Name: IRVING MARTÍNEZ Age: 72 Sex: Female Ethnicity: White Date of : 1950 Indication: osteopenia; inflammatory bowel disease; cancer; hysterectomy; Referring Provider: ALBERTO, CRISTINE Study: Bone densitometry was performed. Exam Date: November 02, 2023 Accession number: [id number] Bone Density: Region BMD T-score Z-score Classification AP Spine(L1, L2, L3) 0.780 -2.2 -0.1 Osteopenia Femoral Neck (Left) 0.661 -1.7 0.2 Osteopenia Total Hip (Left) 0.797 -1.2 0.4 Osteopenia Femoral Neck (Right) 0.724 -1.1 0.7 Osteopenia Total Hip (Right) 0.697 -2.0 -0.5 Osteopenia Total Hip Mean 0.747 -1.6 -0.1 Osteopenia World Health Organization criteria for BMD impression classify patients as: Normal (T-score at or above -1.0), Osteopenia (T-score between -1.0 and -2.5), or Osteoporosis (T-score at or below -2.5). 10-year Fracture Risk(1): Major Osteoporotic Fracture 11% Hip Fracture 1.7% Reported Risk Factors: [place] (), Neck BMD=0.661, BMI=26.1 (1) FRAX(R) Version 3.08. Fracture probability calculated for an untreated patient. Fracture probability may be lower if the patient has received treatment. Previous Exams: Region Exam Age BMD T-score BMD Change BMD Change Date g/cm2 vs Baseline vs Previous AP Spine (L1-L3) 11/02/2023 72 0.780 -2.2 0.000 (0.0%) -0.060 (-7.1%) 04/09/2021 70 0.839 -1.6 0.060 (7.6%)* 0.060 (7.6%)* 02/15/2017 66 0.780 -2.2 Total Hip(Left) 11/02/2023 72 0.797 -1.2 -0.006 (-0.8%) 0.056 (7.5%)* 04/09/2021 70 0.741 -1.6 -0.062 (-7.7%) -0.062 (-7.7%) 02/15/2017 66 0.803 -1.1 Total Hip(Right) 11/02/2023 72 0.697 -2.0 -0.090 (-11.4% -0.080 (-10.3% 04/09/2021 70 0.778 -1.3 -0.010 (-1.2%) -0.010 (-1.2%) 02/15/2017 66 0.787 -1.3 *Denotes significance at 95% confidence level, LSC for AP Spine = 0.022 g/cm2, LSC for Total Hip = 0.027 g/cm2 # Denotes dissimilar scan types or analysis methods Clinical Information Provided by Patient: Has used the following medications: Vitamin D Has the following medical conditions: Cancer, Inflammatory bowel diseases, Hysterectomy Patient maximum height was 65 Menopause Age: 53 No regular weight bearing exercise Drinks caffeinated beverages Onset of menses at age 15 Number of children 3 Impression: The patient has low bone mass, based on the Total Spine T-score. The patient has an estimated ten-year risk of hip fracture of 1.7% and an estimated ten-year risk of major fracture of
== END 2023-11-02 13:12 | disposition home or self-care (01) ==
PROVIDERS: PCP Family Medicine; Visit Provider Nurse Practitioner
DX: Z12.31 Encounter for screening mammogram for malignant neoplasm of breast (principal); M85.88 Other specified disorders of bone density and structure, other site; R92.8 Other abnormal and inconclusive findings on diagnostic imaging of breast
CPT/HCPCS: 77063; 77067; 77080

== ENCOUNTER 2023-11-16 08:35 | Outpatient (CLI) | payer MEDICARE, SELFPAY ==
--- NOTE | ~2023-11-16 | MMUS_ITS ---
EXAMINATION: MM diagnostic joyce RT w oneyda, US breast RT limited HISTORY: Right breast asymmetry on screening mammogram TECHNIQUE: Additional 3-D tomosynthesis images of the right breast were performed and synthetic 2-D i mages were generated. CAD analysis was submitted and interpreted. High resolution limited right breas t ultrasound was performed. COMPARISON: 11/02/2023, 04/08/2022, 02/18/2021 FINDINGS: MAMMOGRAPHIC FINDINGS: There is a persistent asymmetry in the middle third of the outer right breast 6 cm from the nipple on the craniocaudal view. No suspicious calcification or architectural distortion are identified. ULTRASOUND: There is no evidence of focal abnormal solid or cystic mass in the vicinity of the right breast asymm etry. IMPRESSION: 1. Probably benign right breast asymmetry. 2. Recommend 6 month follow-up right diagnostic mammogram and possible ultrasound. BI-RADS category 3, probably benign findings. Reviewed, dictated and finalized at location A. ER IMPRESSION: 1. Probably benign right breast asymmetry. 2. Recommend 6 month follow-up right diagnostic mammogram and possible ultrasou nd. BI-RADS category 3, probably benign findings.
== END 2023-11-16 08:36 | disposition home or self-care (01) ==
LOC: CHSIMG 08:36
PROVIDERS: PCP Family Medicine; Visit Provider Obstetrics & Gynecology Gynecology
DX: R92.8 Other abnormal and inconclusive findings on diagnostic imaging of breast (principal)
CPT/HCPCS: 76642; 77061; 77065; G0279

== ENCOUNTER 2024-02-04 10:55 | Outpatient (CLI) | payer MEDICARE, SELFPAY ==
--- NOTE | ~2024-02-04 | XR_ITS ---
EXAMINATION: XR chest 2V 02/04/2024 11:10 INDICATION: Shortness of breath PROCEDURE: 2 view chest COMPARISON: 01/02/2013 FINDINGS: The lungs are clear. There is pectus excavatum. The cardiomediastinal silhouette is within normal limits. There are no pleural effusions. There is no pneumothorax suspected. IMPRESSION: 1: NO ACUTE CARDIOPULMONARY DISEASE. Reviewed, dictated and finalized at location B.
== END 2024-02-04 10:56 ==
PROVIDERS: PCP Family Medicine; Visit Provider Nurse Practitioner Family
DX: R06.02 Shortness of breath (principal)
CPT/HCPCS: 71046

== ENCOUNTER 2024-03-07 10:43 | Outpatient (CLI) | payer MEDICARE, SELFPAY ==
[2024-03-07 13:29] LABS: Basophils Percent Auto 0.9 % (0.2-1.2); Eosinophils Absolute Auto 0.1 K/mm3 (0-0.3); Eosinophils Percent Auto 2.6 % (0-4.4); Hematocrit 41.4 % (37.0-47.0); Hemoglobin 13.6 g/dL (12.0-15.0); Immature Granulocyte Absolute 0.01 K/mm3 (0.00-0.031); Immature Granulocyte Percent A 0.2 % (0-0.5); Lymphocytes Absolute Auto 1.75 K/mm3 (0.9-3.2); Lymphocytes Percent Auto 38.3 % (18.3-44.2); Mean Corpuscular HGB Conc 32.9 g/dl (32-36); Mean Corpuscular Hemoglobin 31.6 pg (26-34); Mean Corpuscular Volume 96.1 fl (80-100); Mean Platelet Volume 10.1 fl (7.4-10.4); Monocytes Absolute Auto 0.4 K/mm3 (0.1-0.6); Monocytes Percent Auto 9.2 % (2.6-8.5); Neutrophils Absolute Auto 2.2 K/mm3 (1.3-6.7); Neutrophils Percent Auto 48.8 % (45.5-73.1); Platelet Count Result 169 k/mm3 (150-375); Red Blood Count 4.31 M/mm3 (4.2-5.4); Red Cell Distribution Width 12.9 % (11.5-14.5); White Blood Count 4.6 K/mm3 (4.5-10.0)
[2024-03-07 13:29] LABS: Alanine Aminotransferase 20 U/L (6-35); Albumin Level 4.4 g/dL (3.5-5.1); Alkaline Phosphatase 74 U/L (38-126); Anion Gap 5 mmol/L (4-12); Aspartate Amino Transferase 58 U/L (14-36); Bilirubin,Total 0.5 mg/dL (0.2-1.3); Blood Urea Nitrogen 13 mg/dL (7-17); Calcium 9.5 mg/dL (8.4-10.2); Carbon Dioxide 29 mmol/L (22-30); Chloride 102 mmol/L (98-107); Cholesterol 165 mg/dL (0-200); Estimated Glomerular Filt Rate > 60; Glucose 100 mg/dL (65-110); HDL Direct 78 mg/dL; Potassium 4.6 mmol/L (3.4-5.0); Sodium 136 mmol/L (137-145); Triglycerides 129 mg/dL (<150)
[2024-03-07 13:40] LABS: LDL Cholesterol Direct 84 mg/dL
[2024-03-07 13:58] LABS: Hemoglobin A1C 5.3 % (<5.7)
[2024-03-07 14:00] LABS: Cortisol Random 4.69 ug/dL
[2024-03-14 18:38] LABS: Estrogen 103 pg/mL
== END 2024-03-07 10:44 | disposition home or self-care (01) ==
PROVIDERS: PCP Family Medicine; Visit Provider Nurse Practitioner Family
DX: E78.5 Hyperlipidemia, unspecified (principal); I10 Essential (primary) hypertension; K58.9 Irritable bowel syndrome, unspecified; R73.03 Prediabetes; G20.A1 Parkinson's disease without dyskinesia, without mention of fluctuations; R53.83 Other fatigue; R63.5 Abnormal weight gain; M85.80 Other specified disorders of bone density and structure, unspecified site; Z13.29 Encounter for screening for other suspected endocrine disorder
CPT/HCPCS: 36415; 80053; 80061; 82533; 82672; 83036; 84443; 85025

== ENCOUNTER 2024-03-08 09:50 | Outpatient (CLI) | payer MEDICARE, SELFPAY ==
[2024-03-08 12:52] LABS: Alanine Aminotransferase 21 U/L (6-35); Albumin Level 4.5 g/dL (3.5-5.1); Alkaline Phosphatase 74 U/L (38-126); Aspartate Amino Transferase 59 U/L (14-36); Bilirubin,Total 0.5 mg/dL (0.2-1.3)
== END 2024-03-08 09:51 | disposition home or self-care (01) ==
PROVIDERS: PCP Family Medicine; Visit Provider Nurse Practitioner Family
DX: R74.8 Abnormal levels of other serum enzymes (principal); R53.83 Other fatigue; R79.89 Other specified abnormal findings of blood chemistry
CPT/HCPCS: 36415; 80076

== ENCOUNTER 2024-03-10 11:27 | Outpatient (NON) | payer MEDICARE, SELFPAY | END 2024-03-10 11:28 | disposition home or self-care (01) | LOC: ANHGOSHLAB 11:29 | PROVIDERS: PCP Family Medicine; Visit Provider Nurse Practitioner Family | DX: R63.5 Abnormal weight gain (principal); R74.8 Abnormal levels of other serum enzymes; R53.83 Other fatigue; R79.89 Other specified abnormal findings of blood chemistry | CPT/HCPCS: 82530 ==

== ENCOUNTER 2024-05-17 10:13 | Outpatient (CLI) | payer MEDICARE, SELFPAY ==
--- NOTE | ~2024-05-17 | MMUS_ITS ---
EXAMINATION: MM diagnostic joyce RT w oneyda, US breast RT limited HISTORY: Follow-up right breast asymmetry TECHNIQUE: Additional 3-D tomosynthesis images of the right breast were performed and synthetic 2-D i mages were generated. CAD analysis was submitted and interpreted. High resolution Limited right breas t ultrasound was performed. COMPARISON: Comparison to multiple prior studies sequentially, with oldest reviewed study dated 08/04. BREAST PARENCHYMAL COMPOSITION: Not dense: There are scattered areas of fibroglandular density. FINDINGS: MAMMOGRAPHIC FINDINGS: There are no suspicious masses, calcifications or architectural distortion in the right breast to sug gest malignancy. ULTRASOUND: Limited right breast ultrasound: Normal heterogeneous echotexture without focal solid or cystic mass. IMPRESSION: 1. No evidence for malignancy in the right breast. 2. Routine yearly screening mammogram and regular clinical breast examination are recommended. BI-RADS Category 2: Benign finding(s). Reviewed, dictated and finalized at location B. IMPRESSION: 1. No evidence for malignancy in the right breast. 2. Routine yearly screening mammogram and regular clinical breast examination a re recommended. BI-RADS Category 2: Benign finding(s).
== END 2024-05-17 10:14 | disposition home or self-care (01) ==
PROVIDERS: PCP Family Medicine; Visit Provider Obstetrics & Gynecology Gynecology
DX: N64.89 Other specified disorders of breast (principal)
CPT/HCPCS: 76642; 77061; 77065; G0279

== ENCOUNTER 2024-09-06 09:59 | Outpatient (CLI) | payer MEDICARE, SELFPAY ==
[2024-09-06 12:43] LABS: Basophils Percent Auto 0.7 % (0.2-1.2); Eosinophils Absolute Auto 0.1 K/mm3 (0-0.3); Eosinophils Percent Auto 2.5 % (0-4.4); Hematocrit 42.2 % (37.0-47.0); Hemoglobin 14.4 g/dL (12.0-15.0); Immature Granulocyte Absolute 0.01 K/mm3 (0.00-0.031); Immature Granulocyte Percent A 0.2 % (0-0.5); Lymphocytes Absolute Auto 1.57 K/mm3 (0.9-3.2); Lymphocytes Percent Auto 35.4 % (18.3-44.2); Mean Corpuscular HGB Conc 34.1 g/dl (32-36); Mean Corpuscular Hemoglobin 33.2 pg (26-34); Mean Corpuscular Volume 97.2 fl (80-100); Mean Platelet Volume 9.7 fl (7.4-10.4); Monocytes Absolute Auto 0.4 K/mm3 (0.1-0.6); Monocytes Percent Auto 9.9 % (2.6-8.5); Neutrophils Absolute Auto 2.3 K/mm3 (1.3-6.7); Neutrophils Percent Auto 51.3 % (45.5-73.1); Platelet Count Result 167 k/mm3 (150-375); Red Blood Count 4.34 M/mm3 (4.2-5.4); Red Cell Distribution Width 13.2 % (11.5-14.5); White Blood Count 4.4 K/mm3 (4.5-10.0)
[2024-09-06 13:00] LABS: Alanine Aminotransferase 25 U/L (6-35); Albumin Level 4.2 g/dL (3.5-5.1); Alkaline Phosphatase 70 U/L (38-126); Anion Gap 5 mmol/L (4-12); Aspartate Amino Transferase 56 U/L (14-36); Bilirubin,Total 0.6 mg/dL (0.2-1.3); Blood Urea Nitrogen 13 mg/dL (7-17); Carbon Dioxide 30 mmol/L (22-30); Chloride 101 mmol/L (98-107); Cholesterol 152 mg/dL (0-200); Estimated Glomerular Filt Rate > 60; Glucose 89 mg/dL (65-110); HDL Direct 58 mg/dL; Potassium 4.5 mmol/L (3.4-5.0); Sodium 136 mmol/L (137-145); Triglycerides 93 mg/dL (<150)
[2024-09-06 13:16] LABS: Vitamin D 25 Hydroxy 43.8 ng/mL
[2024-09-06 13:17] LABS: LDL Cholesterol Direct 69 mg/dL
== END 2024-09-06 10:00 | disposition home or self-care (01) ==
LOC: ANHGOSHLAB 10:00
PROVIDERS: PCP Family Medicine; Visit Provider Family Medicine
DX: E78.5 Hyperlipidemia, unspecified (principal); I10 Essential (primary) hypertension; E53.8 Deficiency of other specified B group vitamins; E55.9 Vitamin D deficiency, unspecified; F32.9 Major depressive disorder, single episode, unspecified
CPT/HCPCS: 36415; 80053; 80061; 82306; 82607; 84443; 85025

== ENCOUNTER 2024-09-12 10:30 | Outpatient (CLI) | payer MEDICARE, SELFPAY ==
--- NOTE | ~2024-09-12 | MR_ITS ---
MRI of the abdomen: Clinical indication: Disease of pancreas, unspecified. Technique: Coronal SSFSE ARC, WATER:coronal LAVA-FLEX, Coronal 2D FIESTA FatSat, Axial SSFSE BH ARC, Axial 3D DualEcho BH, Axial SSFSE-IR, Axial DWI b=500, Axial 2D FIESTA FatSat, pre and dynamic postco ntrast Axial LAVA ARC, postcontrast Coronal In and Opposed phase LAVA FLEX . Following intravenous ad ministration of 15 cc MultiHance gadolinium, T1-weighted fat-sat imaging was performed in the axial a nd coronal planes. COMPARISON: 09/07/2022 Findings: Gallbladder absent. The common bile duct is normal in course and caliber. No filling defect s are seen within the CBD. No evidence of intrahepatic biliary ductal dilatation. The pancreatic duct is normal in size. There is mild signal loss in the liver noted phase images relative to in phase images, suggestive of mild fatty infiltration. No focal hepatic mass seen. Spleen, adrenals, kidneys appear normal. Stable subcentimeter cystic lesion at the pancreatic neck/proximal body. The aorta and the paraaortic region s appear normal. Impression: Stable subcentimeter cystic lesion in the pancreatic neck/proximal body. Mild fatty infiltration of liver. Reviewed, dictated and finalized at location . 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 Mild fatty infiltration of liver.
== END 2024-09-12 10:31 | disposition home or self-care (01) ==
PROVIDERS: PCP Family Medicine; Visit Provider Family Medicine
DX: K86.2 Cyst of pancreas (principal); K76.0 Fatty (change of) liver, not elsewhere classified; K86.9 Disease of pancreas, unspecified; N28.1 Cyst of kidney, acquired
CPT/HCPCS: 74183; A9577

== ENCOUNTER 2024-10-20 12:15 | Outpatient (CLI) | payer MEDICARE, SELFPAY ==
[2024-10-20 17:03] LABS: Albumin Level 4.4 g/dL (3.5-5.1); Calcium 9.2 mg/dL (8.4-10.2); Estimated Glomerular Filt Rate > 60
== END 2024-10-20 12:16 | disposition home or self-care (01) ==
LOC: ANHLAB 12:16
PROVIDERS: PCP Family Medicine; Visit Provider Family Medicine
DX: Z92.29 Personal history of other drug therapy (principal); Z88.8 Allergy status to other drugs, medicaments and biological substances
CPT/HCPCS: 36415; 82040; 82310; 82565

== ENCOUNTER 2024-10-21 12:51 | Emergency (ER) | payer MEDICARE, SELFPAY ==
[2024-10-21 13:06] VITALS: BP 118/87; PULSE 93; RESP 16; TEMP 36.9; O2SAT 100
[2024-10-21 13:15] LABS: EDCOVIDSCREEN Positive (Negative); EDINFLUASCREEN Negative (Negative); EDINFLUBSCREEN Negative (Negative); EDSTREPNEGPOS1 Negative (Negative)
--- NOTE | 2024-10-21 13:33 | ED_ITS ---
HPI - URI/Sore Throat General Chief Complaint: Upper Respiratory Infection Stated Complaint: Sore Throat/Earache/Cough Time Seen by Provider: 10/21/24 13:10 Source: patient and RN notes reviewed Mode of arrival: ambulatory Limitations: no limitations History of Present Illness HPI Narrative: Patient presents today complaining of 2-3 day history of bilateral ear pain left greater than right, sore throat, cough, subjective fever, body aches. Has been had COVID-19 last week. Denies shortness of breath or difficulty swallowing. Sore throat does increase with swallowing. She has tried some Sudafed PE and throat spray without much relief. Related Data Home Medications ?Medication ?Instructions ?Recorded ?Confirmed ?Last Taken ?Type oxygen-air delivery systems 1 % miscellaneous HS PRN Shortness 06/19/21 10/10/24 10/26/23 History [Horizon Nasal Cpap System] Of Breath vit C,F-Ew-ggqob-lutein-zeaxan 1 cap PO DAILY 06/19/21 10/10/24 10/26/23 History [PreserVision AREDS-2] calcium polycarbophil 625 mg 1,250 mg PO BID 01/06/22 10/10/24 10/26/23 History tablet (FiberCon) primidone 50 mg tablet 100 mg PO QHS 02/02/22 10/10/24 10/26/23 History atomoxetine 10 mg capsule 20 mg PO DAILY 08/04/22 10/10/24 10/26/23 History duloxetine 30 mg capsule,delayed 60 mg PO DAILY 08/04/22 10/10/24 10/26/23 History release omega-3 fatty acids 1,000 mg See Rx Instructions PO BID 08/26/22 10/10/24 10/26/23 History capsule (Fish Oil Concentrate) fluticasone propionate 50 2 spray intranasal DAILY PRN 08/10/23 10/10/24 10/26/23 History mcg/actuation nasal Allergy Symptoms spray,suspension (Flonase Allergy Relief) carbidopa 25 mg-levodopa 100 mg 0.5 tablet PO TID 09/05/24 10/10/24 Unknown Hi story tablet cholecalciferol (vitamin D3) 50 50 mcg PO DAILY 09/05/24 10/10/24 Unknown History mcg (2,000 unit) capsule Allergies Allergy/AdvReac Type Severity Reaction Status Date / Time No Known Allergies Allergy Verified 10/10/24 10:36 Review of Systems Review of Systems: CONSTITUTIONAL: + body aches, subjective fever EYES: Denies visual changes, redness, or discharge. ENT: Denies rhinorrhea. + congestion, sore throat, ear pain CARDIOVASCULAR: Denies chest pain, palpitations, or edema. RESPIRATORY: Denies dyspnea.+ cough GASTROINTESTINAL: Denies abdominal pain, nausea, vomiting, or diarrhea. GENITOURINARY: Denies dysuria or hematuria. SKIN: Denies rash, itching, or wounds. MUSCULOSKELETAL: Denies back pain, joint pain, or myalgia. NEUROLOGIC: Denies headache, numbness, tingling, or weakness. PSYCH: Denies depression or anxiety. [facility] Past Medical History Medical History Fatigue Weight gain Cataract, left eye SOB (shortness of breath) on exertion Acute bacterial sinusitis Lesion of pancreas (~09/2022) Parkinsons disease Gastroparesis Dyslipidemia IBS (irritable bowel syndrome) Tinnitus, bilateral Arthritis Skin cancer Vision loss Labral tear of long head of right biceps tendon Arthritis of shoulder region, right, degenerative History of colon polyps Attention deficit disorder Anxiety Osteopenia Back pain with history of spinal surgery February 24, 2019 June 15, 2019 Essential (primary) hypertension History of melanoma Major depressive disorder, single episode, unspecified Obstructive sleep apnea Primary generalized (osteo)arthritis Vitamin D deficiency, unspecified Surgical History Surgical History History of stem cell transplant 2018 - Left shoulder History of cataract extraction with lens replacement 2016 - Right History of cervical spinal surgery 2013 - Nerve ablation of C - 2,3,4 History of foot surgery 2010 - cheilectomy Dr. Boo Cespedes History of melanoma excision 2005 - right ankle Malignant 2004 - Left groin Benign Hx of LASIK 2004 - b/l eyes History of bladder repair surgery 2003 - due to surgical trauma during hysterectomy History of hysterectomy 2003 H/O excision of ganglion cyst 1998 - left ring finger History of appendectomy 1979 History of tubal ligation 1979 History of tonsillectomy 1975 History of lumbar fusion 02/2019 and 06/2019 - L5-S1 fusion History of cholecystectomy 2006 Family History Family History Father Malignant neoplasm of prostate Polio Mother Alzheimer disease Sibling Rectal cancer Suicide Other Suicide Grandparent Alcoholism Social History Social History Smoking status: Never smoker Second hand tobacco smoke exposure: No Alcohol intake: current Drinks per week: 2 Alcohol use details: WINE Substance use: never Substance use type: does not use Lack of Transportation: No Lack of Food: Never True Current Housing: I Have Housing Concerned About Future Housing: No Difficulty Paying Gas/Electric Bills: No Difficulty Paying for Meds: No Currently Unemployed: No Education: Trade/Vocational Certificate Difficulty w/ Childcare or Family Care: No Living arrangements: with family Occupation/Education: retired Gender identity (if verbalized by the patient): Female Spiritual care concerns: No Agree to blood products: Yes Comments At time of signature, I have reviewed and agree with nursing past medical, surgical, social and family history unless otherwise noted. Please see nursing chart for further information. There is no relevant family history pertinent to the presenting complaint Exam Narrative: GENERAL: Mildly ill-appearing, well-nourished, and in no acute distress. HEAD: Normocephalic, atraumatic. EYES: EOMI. No redness or drainage. Conjunctivae normal. ENT: Mucous membranes pink and moist. Nares congested. No rhinorrhea. TMs normal bilaterally. Throat normal. Uvula midline. NECK: Normal AROM. Supple. No lymphadenopathy. CHEST: No respiratory distress. Clear to auscultation. HEART: Regular rate and rhythm. No murmur appreciated. EXTREMITIES: Normal range of motion. No edema. SKIN: Warm, dry, no rash. Capillary refill normal. Normal skin turgor. NEURO: No focal deficits. Alert and oriented x3. Gait steady. PSYCH: Normal affect. No signs of depression or anxiety. Course Course Level of Care: Express Care Visit Vital Signs Vital signs: Vital Signs Temperature 98.4 F 10/21/24 13:06 Pulse Rate 93 10/21/24 13:06 Respiratory Rate 16 10/21/24 13:06 Blood Pressure 118/87 10/21/24 13:06 Pulse Oximetry 100 10/21/24 13:06 Temperature 98.4 F 10/21/24 13:06 Pulse Rate 93 10/21/24 13:06 Respiratory Rate 16 10/21/24 13:06 Blood Pressure 118/87 10/21/24 13:06 Pulse Oximetry 100 10/21/24 13:06 Reviewed MDM - URI/Sore Throat MDM Narrative Medical decision making narrative: COVID-19 positive. Influenza and rapid strep negative. Strep culture pending. Patient is not eligible to take Paxlovid due to contraindication with Primadone. Discussed kirj-hoc-jizrcvk medication use and duration of illness. ED precautions given. Differential Diagnosis Differential diagnosis: Likely upper respiratory infection, otitis media, viral infection, influenza, pharyngitis and other (Strep throat, COVID-19) Lab Data Attestation: I reviewed the patient's lab results. Labs: Lab Results 10/21/24 Range/Units 13:14 POC Influenza A Ag Negative (Negative) POC Influenza B Ag Negative (Negative) POC SARS CoV-2 Ag Positive (Negative) POC Grp A Strep Screen Negative (Negative) Critical Care Time Critical Care Time Critical Care Time: No Discharge Plan Discharge Clinical Impression: COVID-19 Patient Disposition: Home, Self-Care Condition: Stable Instructions: COVID-19 (Coronavirus Disease 2019) (ED) Additional Instructions: You have tested positive for COVID-19. Your influenza and strep tests are negative. Please take njqs-gzt-oeqlxhb medications such as Tylenol or ibuprofen for pain or fever. If symptoms worsen to include shortness of breath, difficulty swallowing, please go to the ER immediately for further evaluation and treatment. Your blood pressure was elevated above 120/80 today at Urgent Care. This puts you above the threshold for follow up. Please schedule a followup visit with your personal physician as soon as possible, for further evaluation and treatment. Even blood pressure exceeding 120/80 may indicate pre-hypertension. Patient Language: Belarusian Prescriptions: No Action atomoxetine 10 mg capsule 20 mg PO DAILY duloxetine 30 mg capsule,delayed release(DR/EC) 60 mg PO DAILY omega-3 fatty acids [Fish Oil Concentrate] 1,000 mg capsule See Rx Instructions PO BID Rx Instructions: orally twice a day; primidone 50 mg tablet 100 mg PO QHS fluticasone propionate [Flonase Allergy Relief] 50 mcg/actuation spray,suspension 2 spray intranasal DAILY PRN (Reason: Allergy Symptoms) Rx Instructions: administer into each nostril cholecalciferol (vitamin D3) 50 mcg (2,000 unit) capsule 50 mcg PO DAILY vit C,F-Lk-sfrck-lutein-zeaxan [PreserVision AREDS-2] 1 cap PO DAILY oxygen-air delivery systems [Horizon Nasal Cpap System] 1 % miscellaneous HS PRN (Reason: Shortness Of Breath) calcium polycarbophil [FiberCon] 625 mg tablet 1,250 mg PO BID carbidopa-levodopa 25-100 mg tablet 0.5 tablet PO TID amitriptyline 10 mg tablet 20 mg PO QHS Qty: 180 3RF omeprazole 40 mg capsule,delayed release(DR/EC) 40 mg PO DAILY Qty: 90 3RF rosuvastatin 10 mg tablet 10 mg PO QHS Qty: 90 1RF lisinopril 5 mg tablet 5 mg PO DAILY Qty: 90 1RF Follow-up/Referrals: Johnathan Joy MD [Primary Care Provider] - Time of Disposition: 13:33
== END 2024-10-21 13:36 | disposition home or self-care (01) ==
PROVIDERS: Emergency Provider Nurse Practitioner; PCP Family Medicine
DX: U07.1 COVID-19 (principal); G20.A1 Parkinson's disease without dyskinesia, without mention of fluctuations; E78.5 Hyperlipidemia, unspecified; M85.80 Other specified disorders of bone density and structure, unspecified site; I10 Essential (primary) hypertension; E55.9 Vitamin D deficiency, unspecified; K31.84 Gastroparesis; M19.011 Primary osteoarthritis, right shoulder; Z86.16 Personal history of COVID-19; Z85.828 Personal history of other malignant neoplasm of skin; Z94.84 Stem cells transplant status; Z96.1 Presence of intraocular lens; Z98.41 Cataract extraction status, right eye
CPT/HCPCS: 87426; 87804; 87880; 99212; G0463

== ENCOUNTER 2024-12-11 12:23 | Outpatient (CLI) | payer MEDICARE, SELFPAY ==
--- NOTE | ~2024-12-11 | MM_ITS ---
EXAMINATION: MM screening joyce BI w oneyda HISTORY: Screening mammogram TECHNIQUE: Craniocaudal and mediolateral oblique 3-D tomosynthesis images were obtained and synthetic 2-D images were generated. CAD analysis was submitted and interpreted. COMPARISON: 05/17/2024, 11/16/2023 11/02/2023, 04/08/2022, 02/18/2021 BREAST PARENCHYMAL COMPOSITION:Not Dense. There are scattered areas of fibroglandular density. FINDINGS: No suspicious mass, calcification, or architectural distortion are identified in either deneen ast to suggest malignancy. There has been no suspicious interval change. IMPRESSION: No mammographic evidence of malignancy. Recommend routine screening mammography in one year. BI-RADS Category 1: Negative Reviewed, dictated and finalized at location .
--- OUTSIDE RECORDS SUMMARY | 2024-12-11 14:17 | XMS_ITS | Encounter Summary ---
Author Organization [facility] Address [address] [place] [address] Phone Care Team Providers Care Paperboard Machine Operator Name Role Phone Shanita Joy MD Primary Care Provider Alexandr Duncan MD Unavailable [phone] Reason for Visit * Reason Comments Medication Refill Encounter Details Date Type Department Care Team (Late st Contact Info) Description 01/24/2024 Refill [facility] - Neurology [facility] [address] [place] [phone] Alexandr Duncan MD [address] [place] [phone] Medication Refill Social History Tobacco Use Types Packs/Day Years Used Date Smoking Tobacco: Never Smokeless Tobacco: Never Alcohol Use Standard Drinks/Week Comments Yes 0 (1 standard drink = 0.6 oz pur e alcohol) occasional Comments No Sex and Gender Information Value Date Recorded Sex Assigned at Not on file Legal Sex Female 10:27 PM CDT Gender Identity Not on file Sexual Orientation Not on file documented as of this encounter Miscellaneous Notes * Telephone Encounter - Meeta Echevarria RN - 01/24/2024 10:23 AM CDT Medication(s) refilled and signed per [facility] Chronic Medication Refill Standing Order for Pediatricand Adult Patients. Requested Prescriptions Pending Prescriptions Disp Refills carbidopa-levodopa (SINEMET) 25-100 MG Tablet [Pharmacy Med Name: CARBIDOPA- LEVODOPA 25-100 TAB] 135 Tablet Sig: TAKE 1/2 TABLET BY MOUTH 3 TIMES DAILY A HALF HOUR BEFORE EATING Antiparkinson Dopaminergics and COMT Protocol Passed - 01/24/2024 9:58 AM Passed - Visit with relevant provider in the past 9 months or upcoming 90 days Recent Visits Date Type Provider Dept 08/30/23 Office Visit Alexandr Duncan MD [facility] Neurology [facility] Showing recent visits within past 270 days and meeting all other requirements Future Appointments Date Type Provider Dept 03/20/24 Appointment Alexandr Duncan MD [facility] Neurology [facility] Showing future appointments within next 90 days and meeting all other requirements Passed - Blood pressure on record in past 12 months Clinician-entered: BP Readings from Last 3 Encounters: 08/30/23 126/80 11/03/22 120/70 08/03/22 116/70 Patient-entered: No data recorded documented in this encounter Plan of Treatment Upcoming Encounters Date Type Department Care Team (Late st Contact Info) Description 03/26/2025 11:30 AM CDT Office Visit [facility] - Neurology [facility] [address] [place] [address] Alexandr Duncan MD [address] [place] [address] documented as of this encounter Visit Diagnoses Not on filedocumented in this encounter Care Teams Paperboard Machine Operator Relationship Specialty Start Date End Date Shanita Joy MD PCP - General Family Medicine 12/03/21 Alexandr Duncan MD [address] [place] [address] Consulting Physician Neurology 07/19/23 documented as of this encounter
--- OUTSIDE RECORDS SUMMARY | 2024-12-11 14:17 | XMS_ITS | Clinical Summary ---
Author Organization [facility] Address [address] [address] Phone Care Team Providers Care Pulp Piler Name Role Phone Shanita Joy MD Primary Care Provider Active Problems Problem Noted Date Diagnosed Date Irritable bowel syndrome 12/19/2021 Diarrhea 12/19/2021 Immunizations Name Administration Dates Next Due Influenza, Injectable, Quadrivalent, Preservativ e Free 06/17/2019 Social History Tobacco Use Types Packs/Day Years Used Date Smoking Tobacco: Never Assessed Sex and Gender Information Value Date Recorded Sex Assigned at Not on file Gender Identity Not on file Sexual Orientation Not on file Plan of Treatment Health Maintenance Due Date Last Done Comments Pneumococcal PPSV23/PCV13 65 + Years / Low and Medium Risk (1 of 4 - PCV) 2017 Influenza Vaccine (#1) 2024 06/17/2019 Care Teams Pulp Piler Relationship Specialty Start Date End Date Shanita Joy MD [address] [place] [address] PCP - General Internal Medicine 12/01/21
--- OUTSIDE RECORDS SUMMARY | 2024-12-11 14:17 | XMS_ITS | Encounter Summary ---
Author Organization [facility] Address [address] [place] [address] Phone Care Team Providers Care Machine Printer Hose Name Role Phone Shanita Joy MD Primary Care Provider Alexandr Duncan MD Unavailable [phone] Reason for Visit * Reason Comments Medication Refill Encounter Details Date Type Department Care Team (Late st Contact Info) Description 12/23/2022 Refill [facility] - Neurology [facility] [address] [place] [address] Alexandr Duncan MD [address] [place] [phone] Medication Refill Social History Tobacco Use Types [...] Telephone Encounter - Meeta Echevarria RN - 12/23/2022 7:51 AM CDT Medication failed the protocol, provider to review and approve the medication order if appropriate. Requested Prescriptions Pending Prescriptions Disp Refills primidone (MYSOLINE) 50 MG Tablet [Pharmacy Med Name: PRIMIDONE 50 MG TABLET] 180 Tablet 1 Sig: TAKE 2 TABLETS BY MOUTH EVERY NIGHT Not Delegated - Anticonvulsants Excluding Benzodiazepines Protocol Failed - 12/23/2022 12:59 AM Failed - This refill cannot be delegated Passed - Visit with relevant provider in past 12 months or upcoming 90 days Recent Visits Date Type Provider Dept 11/03/22 Office Visit Alexandr Duncan MD [facility] Neurology [facility] 08/03/22 Office Visit Alexandr Duncan MD [facility] 04/28/22 Office Visit Alexandr Duncan MD [facility] 01/20/22 Office Visit Alexandr Duncan MD [facility] Showing recent visits within past 365 days and meeting all other requirements Future Appointments No visits were found meeting these conditions. Showing future appointments within next 90 days and meeting all other requirements documented in this encounter Plan of Treatment Upcoming Encounters Date Type Department Care Team (Late st Contact Info) Description 03/26/2025 11:30 AM CDT Office Visit [facility] - [facility] [address] [place] [address] Alexandr Duncan MD [address] [place] [address] documented as of this encounter Visit Diagnoses Not on filedocumented in this encounter Care Teams Machine Printer Hose Relationship Specialty Start Date End Date Shanita Joy MD PCP - General Family Medicine 12/03/21 Alexandr Duncan MD [address] [place] [address] Consulting Physician Neurology 07/19/23 documented as of this encounter
--- OUTSIDE RECORDS SUMMARY | 2024-12-11 14:17 | XMS_ITS | Encounter Summary ---
Author Organization [facility] Address [address] [place] [address] Phone Care Team Providers Care Truck Engine Technician Name Role Phone Shanita Joy MD Primary Care Provider Aleaxndr Duncan MD Unavailable [phone] Reason for Visit * Reason Comments Medication Refill Encounter Details Date Type Department Care Team (Late st Contact Info) Description 06/24/2023 Refill [facility] - Neurology [facility] [address] [place] [address] Alexandr Duncan MD [address] [place] [phone] Medication Refill Social History Tobacco Use Types [...] Telephone Encounter - Meeta Echevarria RN - 06/24/2023 8:08 AM CDT Medication failed the protocol, provider to review and approve the medication order if appropriate. Requested Prescriptions Pending Prescriptions Disp Refills primidone (MYSOLINE) 50 MG Tablet [Pharmacy Med Name: PRIMIDONE 50 MG TABLET] 180 Tablet 1 Sig: TAKE 2 TABLETS BY MOUTH EVERY NIGHT Not Delegated - Anticonvulsants Excluding Benzodiazepines Protocol Failed - 06/24/2023 12:08 AM Failed - This refill cannot be delegated Passed - Visit with relevant provider in past 12 months or upcoming 90 days Recent Visits Date Type Provider Dept 11/03/22 Office Visit Alexandr Duncan MD [facility] Neurology [facility] 08/03/22 Office Visit Alexandr Duncan MD [facility] Neurology [facility] Showing recent visits within past 365 days and meeting all other requirements Future Appointments Date Type Provider Dept 08/30/23 Appointment Alexandr Duncan MD [facility] Showing future appointments within next 90 days and meeting all other requirements documented in this encounter Plan of Treatment Upcoming Encounters Date Type Department Care Team (Late st Contact Info) Description 03/26/2025 11:30 AM CDT [facility] [address] [place] [address] Alexandr Duncan MD [address] [place] [address] documented as of this encounter Visit Diagnoses Not on filedocumented in this encounter Care Teams Truck Engine Technician Relationship Specialty Start Date End Date Shanita Joy MD PCP - General Family Medicine 12/03/21 Alexandr Duncan MD [address] [place] [address] Consulting Physician Neurology 07/19/23 documented as of this encounter
--- OUTSIDE RECORDS SUMMARY | 2024-12-11 14:17 | XMS_ITS | Encounter Summary ---
Author Organization [facility] Address [address] [place] [address] Phone Care Team Providers Care Geological Science Teacher Name Role Phone Shanita Joy MD Primary Care Provider Alexandr Duncan MD Unavailable [phone] Reason for Visit * Reason Comments Medication Refill Encounter Details Date Type Department Care Team (Late Contact Info) Description [facility] [address] [place] [address] Alexandr Duncan MD [address] [place] [address] Medication Refill Social History Tobacco Use Types [...] on file documented as of this encounter Plan of Treatment Upcoming Encounters Date Type Department Care Team (Late Contact Info) Description 03/26/2025 11:30 AM CDT Office Visit [facility] [address] [place] [address] Alexandr Duncan MD [address] [place] [address] documented as of this encounter Visit Diagnoses Not on filedocumented in this encounter Care Teams Geological Science Teacher Relationship Specialty Start Date End Date Shanita Joy MD PCP - General Family Medicine 12/03/21 Alexandr Duncan MD [address] [place] [address] Consulting Physician Neurology 07/19/23 documented as of this encounter
--- OUTSIDE RECORDS SUMMARY | 2024-12-11 14:17 | XMS_ITS | Encounter Summary ---
Author Organization [facility] Address [address] [place] [address] Phone Care Team Providers Care Smoking Tobacco Packing Machine Hand Name Role Phone Shanita Joy MD Primary Care Provider Alexandr Duncan MD Unavailable [phone] Reason for Visit * Reason Comments Medication Refill Encounter Details Date Type Department Care Team (Late st Contact Info) Description 02/12/2022 Refill [facility] - Neurology [facility] [address] [place] [phone] Alexandr Duncan MD [address] [place] [address] Medication Refill Social History Tobacco Use Types [...] on file Sexual Orientation Not on file COVID-19 Exposure Response Date Recorded In the last 10 days, have yo u been in contact with someone who was confirmed or suspected to have Coronavirus/COVID-19? No / Unsure 01/20/2022 1:03 PM CDT documented as of this encounter Miscellaneous Notes * Telephone Encounter - Meeta Echevarria RN - 02/12/2022 8:45 AM CDT . documented in this encounter Plan of Treatment Upcoming Encounters Date Type Department Care Team (Late st Contact Info) Description 03/26/2025 11:30 AM CDT [facility] [address] [place] [address] Alexandr Duncan MD [address] [place] [address] documented as of this encounter Visit Diagnoses Not on filedocumented in this encounter Care Teams Smoking Tobacco Packing Machine Hand Relationship Specialty Start Date End Date Shanita Joy MD PCP - General Family Medicine 12/03/21 Alexandr Duncan MD [address] [place] [address] Consulting Physician Neurology 07/19/23 documented as of this encounter
--- OUTSIDE RECORDS SUMMARY | 2024-12-11 14:17 | XMS_ITS | Encounter Summary ---
Author Organization [facility] Address [address] [place] [address] Phone Care Team Providers Care Graduate Research Assistant Name Role Phone Shanita Joy MD Primary Care Provider Alexandr Duncan MD Unavailable [phone] Reason for Visit * Reason Comments Medication Refill Encounter Details Date Type Department Care Team (Late st Contact Info) Description 12/24/2023 Refill [facility] - Neurology [facility] [address] [place] [address] Alexandr Duncan MD [address] [place] [phone] Medication Refill Social History Tobacco Use Types [...] Telephone Encounter - Meeta Echevarria RN - 12/24/2023 8:07 AM CDT Medication failed the protocol, provider to review and approve the medication order if appropriate. Requested Prescriptions Pending Prescriptions Disp Refills primidone (MYSOLINE) 50 MG Tablet [Pharmacy Med Name: PRIMIDONE 50 MG TABLET] 180 Tablet 1 Sig: TAKE 2 TABLETS BY MOUTH EVERY NIGHT Not Delegated - Anticonvulsants Excluding Benzodiazepines Protocol Failed - 12/24/2023 12:43 AM Failed - This refill cannot be delegated Passed - Visit with relevant provider in past 12 months or upcoming 90 days Recent Visits Date Type Provider Dept 08/30/23 Office Visit Alexandr Duncan MD [facility] Neurology [facility] Showing recent visits within past 365 days and meeting all other requirements Future Appointments Date Type Provider Dept 03/20/24 Appointment Alexandr Duncan MD [facility] Showing future appointments within next 90 days and meeting all other requirements documented in this encounter Plan of Treatment Upcoming Encounters Date Type Department Care Team (Late st Contact Info) Description 03/26/2025 11:30 AM CDT Office Visit [facility] - Neurology [facility] [address] [place] [address] Alexandr Duncan MD [address] [place] [address] documented as of this encounter Visit Diagnoses Not on filedocumented in this encounter Care Teams Graduate Research Assistant Relationship Specialty Start Date End Date Shanita Joy MD PCP - General Family Medicine 12/03/21 Alexandr Duncan MD [address] [place] [address] Consulting Physician Neurology 07/19/23 documented as of this encounter
--- OUTSIDE RECORDS SUMMARY | 2024-12-11 14:17 | XMS_ITS | Clinical Summary ---
Author Organization [facility] Address [address] [place] [id number] Care Team Providers Care Sugar Controller Name Role Phone Unavailable Primary Care Provider Unavailabl e Social History Tobacco Use Types Packs/Day Years Used Date Smoking Tobacco: Never Assessed Comments Unknown Sex and Gender Information Value Date Recorded Sex Assigned at Not on file Legal Sex Female 7:14 PM CDT Gender Identity Not on file Sexual Orientation Not on file Plan of Treatment Health Maintenance Due Date Last Done Comments Colorectal Cancer Screening Colonoscopy (10 Years) 1952 Hepatitis C 1970 DTaP, Tdap and Td Vaccines ( 1 - Tdap) 1971 Mammogram Screening 1992 Zoster Vaccines (1 of 2) 2002 Dexa Scan (General) 2017 Pneumococcal Vaccine: 65+ Ye ars (1 of 1 - PCV) 2017 COVID-19 Vaccine (2023-2 5 season) 2024 Influenza Adult (#1) 2024 RSV Immunization or 60+ Years (1 - 1-dose 75+ series) 2027 Meningococcal B Vaccine Aged Out No l onger eligible based on patient's age to complete this topic Meningococcal Vaccine Aged Out No link flakita eligible based on patient's age to complete this topic RSV Immunizations Under 20 Months Aged Out No longer eligible based on patient's age to complete this topic
--- OUTSIDE RECORDS SUMMARY | 2024-12-11 14:17 | XMS_ITS | Encounter Summary ---
Author Organization [facility] Address [address] [place] [address] Phone Care Team Providers Care Solar Maintenance Technician Name Role Phone Shanita Joy MD Primary Care Provider Alexandr Duncan MD Unavailable [phone] Reason for Visit * Reason Comments Medication Refill Encounter Details Date Type Department Care Team (Late st Contact Info) Description 03/08/2022 Refill [facility] - Neurology [facility] [address] [place] [phone] Alexandr Duncan MD [address] [place] [phone] Medication Refill Social History Tobacco Use Types [...] Telephone Encounter - Meeta Echevarria RN - 03/09/2022 8:19 AM CDT Primidone refill documented in this encounter Plan of Treatment Upcoming Encounters Date Type Department Care Team (Late st Contact Info) Description 03/26/2025 11:30 AM CDT Office Visit [facility] - Neurology [facility] [address] [place] [address] Alexandr Duncan MD [address] [place] [address] documented as of this encounter Visit Diagnoses Not on filedocumented in this encounter Care Teams Solar Maintenance Technician Relationship Specialty Start Date End Date Shanita Joy MD PCP - General Family Medicine 12/03/21 Alexandr Duncan MD [address] [place] [address] Consulting Physician Neurology 07/19/23 documented as of this encounter
--- OUTSIDE RECORDS SUMMARY | 2024-12-11 14:17 | XMS_ITS | Clinical Summary ---
Author Organization [facility] Address [address] [facility] Attn: Epic Prelude ADT JESSICAPETERSON TEELISHA SANTACRUZ [address] Care Team Providers Care Spareribs Trimmer Name Role Phone Unavailable Primary Care Provider Unavailabl e Social History Tobacco Use Types Packs/Day Years Used Date Smoking Tobacco: Never Assessed Comments Unknown Sex and Gender Information Value Date Recorded Sex Assigned at Not on file Legal Sex Female 10:46 PM CDT Gender Identity Not on file Sexual Orientation Not on file Plan of Treatment Health Maintenance Due Date Last Done Comments DTAP/TDAP/TD VACCINES (1 - Tdap) 1971 BREAST CANCER SCREENING 1992 COLORECTAL SCREENING 1997 Colorectal Cancer Screening 1997 FIT-DNA Q 3 years 1997 FIT/FOBT Q 1 year 1997 Flex Sig/CT Colonography Q 5 years 1997 PNEUMOCOCCAL VACCINE 50+ YEARS (1 of 1 - PCV) 11/26/19 03 ZOSTER VACCINE (1 of 2) 2002 OSTEOPOROSIS SCREENING 2017 INFLUENZA VACCINE (#1) 2024 RSV VACCINE (60+ or ) (1 - 1-dose 75+ series) 2027
--- OUTSIDE RECORDS SUMMARY | 2024-12-11 14:17 | XMS_ITS | Encounter Summary ---
Author Organization [facility] Address [address] [facility] [place] [address] Care Team Providers Care Head Waiter/Waitress Name Role Phone Gladys Peraza MD Primary Care Provider [phone] Harman Mac MD Primary Care Provider [phone] Encounter Details Date Type Department Care Team (Late st Contact Info) Description 02/02/2011 [facility] Outpatient Visit [facility] - Radiology [address] [place] [address] Boo Juárez, DO [address] [place] [address] Social History Tobacco Use Types Packs/Day Years Used Date Smoking Tobacco: Never Smokeless Tobacco: Never Alcohol Use Standard Drinks/Week Comments Yes 6.7 (1 standard drink = 0.6 oz p ure alcohol) Sex and Gender Information Value Date Recorded Sex Assigned at Not on file Gender Identity Not on file Sexual Orientation Not on file documented as of this encounter Plan of Treatment Not on file documented as of this encounter Visit Diagnoses Not on filedocumented in this encounter Care Teams Head Waiter/Waitress Relationship Specialty [place] [id number] [address] PCP - General 05/13/10 05/23/18 Harman Mac MD [address] [facility] [address] [place] [address] PCP - General 05/24/18 documented as of this encounter
--- OUTSIDE RECORDS SUMMARY | 2024-12-11 14:17 | XMS_ITS | Encounter Summary ---
Author Organization [facility] Address [address] [place] [address] Phone Care Team Providers Care Eating Disorder Specialist Name Role Phone Shanita Joy MD Primary Care Provider Alexandr Duncan MD Unavailable [phone] Reason for Visit * Reason Comments Medication Refill Encounter Details Date Type Department Care Team (Late Contact Info) Description 06/22/2022 Refill [facility] Neurology [facility] [address] [place] [address] Alexandr Duncan MD [address] [place] [address] Medication Refill Social History Tobacco Use Types [...] Description 03/26/2025 11:30 AM CDT Office Visit [facility] [address] [place] [address] Alexandr Duncan MD [address] [place] [address] documented as of this encounter Visit Diagnoses Not on filedocumented in this encounter Care Teams Eating Disorder Specialist Relationship Specialty Start Date End Date Shanita Joy MD PCP - General Family Medicine 12/03/21 Alexandr Duncan MD [address] [place] [address] Consulting Physician Neurology 07/19/23 documented as of this encounter
--- OUTSIDE RECORDS SUMMARY | 2024-12-11 14:17 | XMS_ITS | Clinical Summary ---
Author Organization [facility] Address [address], [address] [address] Phone Care Team Providers Care Patrol Captain Name Role Phone Shanita Joy MD Primary Care Provider Alexandr Duncan MD Unavailable [phone] Allergies No known active allergies Medications atomoxetine (STRATTERA) 40 MG Capsule Take 20 mg by mouth 2 times daily. Active DULoxetine (CYMBALTA) [address] Particles Take 60 mg by mouth daily. Active [place]-3 Fatty Acids (OMEGA-3 FISH OIL) 1000 MG Capsule Take by mouth daily. Active omeprazole (PriLOSEC) 40 MG CAPSULE DELAYED RELEASE Take 40 mg by mouth daily. Active lisinopril (PRINIVIL, ZESTRIL) 5 MG Tablet Take 25 mg by mouth daily. 2 Active Cholecalciferol (VITAMIN D-3 PO) Take 2,000 Units by mouth. Active Multiple Vitamins-Minerals (PRESERVISION AREDS 2+MULTI VIT PO) Take by mouth. Activ e Calcium Polycarbophil (FIBERCON PO) Take by mouth. A ctive amitriptyline (ELAVIL) 10 MG Tablet Take 10 mg by mouth nightly. 2 tablets at bedtime Active rosuvastatin (CRESTOR) 10 MG Tablet Take 10 mg by mouth daily. Active primidone (MYSOLINE) 50 MG Tablet TAKE 2 TABLETS BY MOUTH EVERY NIGHT 180 Tablet 1 4 Active Progesterone (PROMETRIUM) 100 MG Capsule Take 100 mg by mouth daily. Hazardous: Medication requires special safe handling and disposal. Active ESTROGENS CONJUGATED PO Take by mouth. A ctive carbidopa-levodop a (SINEMET) 25-100 MG Tablet Take 1 Tablet by mouth 3 times daily. 270 Tablet 1 4 Active Active Problems Problem Noted Date Diagnosed Date Parkinson's disease 11/04/2022 IBS (irritable bowel syndrome) Diarrhea Encounters Date Type Department Care Team Description 09/19/2024 11:30 AM MANAGER ACADEMIC Office Visit [facility] - [facility] [address] [place] [address] Alexandr Duncan MD Parkinson's disease without fluctuating manifestations, unspecified whether dyskinesia present (HCC) (Primary Dx) Discharge Disposition: Discharged to home or Selfcare 09/19/2024 Travel from Last 3 Months Family History Medical History Relation Name Comments Cancer Father Alzheimer's Disease Mother Cancer Sister Suicide Attempts Sister Relation Name Status Comments Father Mother Sister Social History Tobacco Use Types Packs/Day Years Used Date Smoking Tobacco: Never Smokeless Tobacco: Never Tobacco Cessation:Counseling Given: Not Answered Alcohol Use Standard Drinks/Week Comments Yes 0 (1 standard drink = 0.6 oz pur e alcohol) occasional Comments No Sex and Gender Information Value Date Recorded Sex Assigned at Not on file Legal Sex Female 10:27 PM CDT Gender Identity Not on file Sexual Orientation Not on file Last Filed Vital Signs Vital Sign Reading Time Taken Comments Blood Pressure 120/80 09/19/2024 11:30 AM MANAGER ACADEMIC Pulse 59 09/19/2024 11:30 AM MANAGER ACADEMIC Temperature 36.1 C (97 F) 09/19/2024 11:30 AM MANAGER ACADEMIC Respiratory Rate 16 09/19/2024 11:30 AM MANAGER ACADEMIC Oxygen Saturation 98% 09/19/2024 11:30 AM MANAGER ACADEMIC Inhaled Oxygen Concentration - - Weight 72.8 kg (160 lb 9.6 oz) 09/19/2024 11:30 AM MANAGER ACADEMIC Height 165.1 cm (5' 5 ) 09/19/2024 11:30 AM MANAGER ACADEMIC Body Mass Index 26.73 09/19/2024 11:30 AM MANAGER ACADEMIC Plan of Treatment Upcoming Encounters Date Type Department Care Team ([facility] st Contact Info) Description 03/26/2025 11:30 AM CDT Office Visit [facility] - Neurology [facility] [address] [place] [address] Alexandr Duncan MD [address] [place] [address] Health Maintenance Due Date Last Done Comments DEXA Bone Density 1950 Hepatitis C Virus (HCV) Screening 1950 Mammogram 1950 Cologuard 2002 Immunochemical Fecal Occult Blood 2002 Colonoscopy 10/12/2022 10/12/2017, 06/07/2014 Colorectal Cancer Screening 10/12/2022 SARS-COV-2 Immunization ( season) 2024 12/23/2020, 12/02/2020 Respiratory Syncytial Virus (RSV) Immunization (Adult) (1 - 1-dose 75+ series) 2027 10/12/2017, 06/07/2014 DTaP/Tdap/Td Immunization Discontinued 02/26/2021 TdaP Immunization Completed 02/26/2021 Zoster Immunization Completed 10/03/2021, Pneumococcal Immunization (50+ years) Completed 08/04/2022, 02/26/2021 Pneumococcal Immunization Combined Discontinued 08/04/2022, 02/26/2021 Influenza Immunization Completed 4, 08/10/2023, 08/04/2022, Additional history exists Hepatitis B Immunization Aged Out No longer eligible based on patient's age to complete this topic Meningococcal Immunization (ACWY) Aged Out No longer eligible based on patient's age to complete this topic Rotavirus Immunization Aged Out No lo nger eligible based on patient's age to complete this topic Procedures Procedure Name Priority Date/Time Associated Diagnosis Comments COLONOSCOPY Routine 10/12/2017 from Last 3 Months or Most Recently Relevant to Health Maintenance Results * HM COLONOSCOPY (10/12/2017) Marco A Rangel MD PROCEDURE/MINOR SURGICA L ORDERABLES Final Result from Last 3 Months or Most Recently Relevant to Health Maintenance Insurance MEDICARE C [employer]ETNA Care Teams Patrol Captain Relationship Specialty Start Date End Date Shanita Joy MD PCP - General Family Medicine 12/03/21 Alexandr Duncan MD [address] [place] [address] Consulting Physician Neurology 07/19/23
--- OUTSIDE RECORDS SUMMARY | 2024-12-11 14:18 | XMS_ITS | Clinical Summary ---
Author Organization [facility] Address [address] [facility] [place] [address] Care Team Providers Care High School Coordinator Name Role Phone Harman Mac MD Primary Care Provider [phone] Source Comments [facility],non-owned Affiliates and Associated Physician Practices is amultiple site organization consisting of ambulatory clinics and hospital sitesin [place], [place], [place] and [place]. This disclosure is being madepursuant to the Care Everywhere program and may not contain all information available regarding this patient. Last updated 18.[facility] [employer] Allergies No known active allergies Medications * Be aware that medications may not be up to date on this document. Alwaysverify current medications with the patient. Medication Sig Dispensed Refills Start Date End Date Status DULoxetine (CYMBALTA) 30 MG capsule Take 60 mg by mouth once daily Active atomoxetine (STRATTERA) 40 MG capsule Take 20 mg by mouth once daily Active vitamin D, ergocalciferol, (DRISDOL) 48431 units capsule Take by mouth every 3 days Active Fluticasone Propionate (FLONASE NA) [place] 2 sprays into the nose once daily Active Multiple Vitamins-Minerals (PRESERVISION AREDS PO) Take by mouth once daily Active Zoledronic Acid (RECLAST IV) Active hydroCHLOROthiazide (HYDRODIURIL) 25 MG tablet Take 25 mg by mouth once daily Active Oxymetazoline HCl (AFRIN 12 HOUR NA) [place] 2 sprays into the nose as needed Active [place]-3 Fatty Acids (OMEGA-3 FISH OIL) 1000 MG capsule Take by mouth once daily Active clonazePAM (KLONOPIN) 0.5 MG tablet Take 0.5 mg by mouth 3 times daily Active HYDROcodone-acetami nophen (NORCO) 5-325 MG tablet Take 1-2 tablets by mouth every 4 hours as needed 40 tablet 06/16/2019 Active Additional Information Patient not taking.Reported on 06/28/2019 lidocaine (LIDODERM) 5 % patch Apply 1 patch to skin every 24 hours 12 patch 06/16/2019 Active Additional Information Patient not taking.Reported on 06/28/2019 methocarbamol (ROBAXIN) 500 MG tablet Take 1 tablet by mouth every 12 hours as needed for Muscle Spasms 30 tablet 06/16/2019 Active Additional Information Patient not taking.Reported on 06/28/2019 TIZANIDINE HCL PO Active methylPREDNISolone (MEDROL DOSEPAK) 4 MG tablet Take by mouth as directed 21 tablet 07/05/2019 Active Additional Information Patient not taking.Reported on 09/11/2019 Active Problems Problem Noted Date Diagnosed Date Low back pain 06/15/2019 S/P lumbar fusion 02/24/2019 DDD (degenerative disc disease), lumbar 02/25/20 19 Immunizations Name Administration Dates Next Due INFLUENZA VACCINE, QUADR. (F LUZONE; FLULAVAL; FLUARIX; AFLURIA QUADRIVALENT; 6MO+), 0.5 ML (IIV4) 06/17/2019 Family History Medical History Relation Name Comments CAD (Coronary Artery Disease) Father Alzheimer's Disease Mother Cancer - Rectal Sister 1 Relation Name Status Comments Father Mother Sister 1 Sister 2 Alive Sister 3 Alive Sister 4 Alive Social History Tobacco Use Types Packs/Day Years [...] Sign Reading Time Taken Comments Blood Pressure 127/71 06/17/2019 8:13 AM CDT Pulse 103 06/17/2019 8:13 AM CDT Temperature 36.8 C (98.3 F) 06/17/2019 8:13 AM CDT Respiratory Rate 20 06/17/2019 8:13 AM CDT Oxygen Saturation 100% 06/17/2019 8:13 AM CDT Inhaled Oxygen Concentration 100% 06/15/2019 5 :00 PM CDT Weight 61.2 kg (135 lb) 06/15/2019 10:54 AM CDT Height 165.1 cm (5' 5 ) 06/15/2019 10:54 AM CDT Body Mass Index 22.47 06/15/2019 10:54 AM CDT Plan of Treatment Health Maintenance Due Date Last Done Comments BONE DENSITY TESTING 1950 COLOGUARD (AGES 45-75) - COL ON CA SCREENING 1952 COLON MONITORING 1952 COLONOSCOPY - COLON CA SCREENING 1952 CT COLONOGRAPHY - COLON CA SCREENING 1950 Colorectal Cancer Screening 1952 FIT - COLON CA SCREENING 1952 FLEX SIG - COLON CA SCREENING 1952 LIPID TESTING 1952 MAMMOGRAM 1952 HEPATITIS C SCREENING 11/22/1970 DTAP/TDAP/TD VACCINES (1 - Tdap) 1971 PNEUMOCOCCAL VACCINE 50+ (1 of 1 - PCV) 2002 ZOSTER VACCINE (1 of 2) 2002 COVID-19 VACCINE ( - 2023-2 5 season) 2024 INFLUENZA VACCINE (#1) 2024 06/17/2019 DEPRESSION SCREENING 10/04/2024 MEDICARE AWV CALENDAR YEAR 2024 Respiratory Syncytial Virus (RSV) Vaccine Pt: or over 60 yrs (1 - 1-dose 75+ series) 2027 HEPATITIS B VACCINE Aged Out No longe r eligible based on patient's age to complete this topic HIB VACCINE Aged Out No longer eligi ble based on patient's age to complete this topic HPV VACCINE Aged Out No longer eligi ble based on patient's age to complete this topic MENINGOCOCCAL (Group B) VACCINE Aged Out No longer eligible based on patient's age to complete this topic MENINGOCOCCAL VACCINE Aged Out No link flakita eligible based on patient's age to complete this topic Medical Devices Implanted Type Area Disc Pad Plate Filler Device Identifier Shelf Expiration Date Model / Serial / Lot Putty 5cc Bone Grft Peptide Enhance Implanted:Qty: 1 on 02/24/2019 by Tyree Ramey II, MD at [facility] [employer] 12/01/2021 [id number] / / [id number] 33 Mm Coverplate Implanted:Qty: 1 on 02/24/2019 by Tyree Ramey II, MD at [facility] [id number] / [id number] / Screw 5mm 25mm Spne [employer]iconstrain - [id number] Implanted:Qty: 4 on 02/24/2019 by Tyree Ramey II, MD at [facility] [employer] Inc [id number] / [id number] / 33 X 28mm Pillar Implant Implanted:Qty: 1 on 02/24/2019 by Tyree Ramey II, MD at [facility] [id number] / [id number] / Rosendo Spnl 30mm 4.75mm Cd Hzn Solera Crv Implanted:Qty: 1 on 06/15/2019 by Tyree Ramey II, MD at [facility] Med[employer] Inc [id number] / / Graft Bone Magnifuse Dbm 5x1cm Spne Crv - [id number] Implanted:Qty: 1 on 06/15/2019 by Tyree Ramey II, MD at [facility] [employer] Inc 02/22/2021 [id number] / [id number] / Screw 6.5mm 40mm 2 Ld Thrd Frm Ma Clr Cd Implanted:Qty: 3 on 06/15/2019 by Tyree Ramey II, MD at [facility] [employer] Inc [id number] / / [id number] Screw 6.5mm 35mm 2 Ld Thrd Frm Ma Clr Cd Implanted:Qty: 1 on 06/15/2019 by Tyree Ramey II, MD at [facility] [employer] Inc [id number] / / Screw Set Ti 4.75mm Spne Nonster Implanted:Qty: 1 on 06/15/2019 by Tyree Ramey II, MD at [facility] Med[employer]onic [employer] [id number] / / Rosendo Spnl 35mm 4.75mm Cd Hzn Solera Crv Implanted:Qty: 1 on 06/15/2019 by Tyree Ramey II, MD at [facility] [employer] Inc [id number] / / Explanted Type Area Disc Pad Plate Filler Device Identifier Shelf Expiration Date Model / Serial / Lot Screw 3.5mm 18mm Jacek Slf-Tap T20 Strdr Explanted:Qty: 1 on 02/24/2019 at [facility] [employer] [id number] / / Advance Directives Documents on File Type Date Recorded Patient Steam Conditioner Operator Expl anation Adv Directive/Living Will/POA 02/28/2019 6:42 PM * Full Code (Latest Code Status on File) Date Activated Date Inactivated Comments 06/15/2019 7:34 PM 06/17/2019 1:30 PM * Full Code Date Activated Date Inactivated Comments 02/24/2019 8:03 PM 02/26/2019 3:30 PM * Full Code Date Activated Date Inactivated Comments 02/24/2019 8:02 PM 02/24/2019 8:03 PM Care Teams High School Coordinator Relationship Specialty Start Date End Date Harman Mac MD [address] [address] PCP - General 05/24/18
--- OUTSIDE RECORDS SUMMARY | 2024-12-11 14:18 | XMS_ITS | Patient Health Summary ---
Author Organization [facility] Address [address] [place] [address] Care Team Providers Care Packer Insulation Name Role Phone Harman Mac MD Primary Care Provider [phone] Note from [facility],non-owned Affiliates and Associated Physician Practices is amultiple site organization consisting of ambulatory clinics and hospital sitesin [place], [place], [place] and [place]. This disclosure is being madepursuant to the Care Everywhere program and may not contain all information available regarding this patient. Last updated 18.[facility] Allergies No known active allergies Medications * Be aware that medications may not be up to date on this document. Alwaysverify current medications with the patient. * DULoxetine (CYMBALTA) 30 MG capsule Take 60 mg by mouth once daily * atomoxetine (STRATTERA) 40 MG capsule Take 20 mg by mouth once daily * vitamin D, ergocalciferol, (DRISDOL) 67512 units capsule Take by mouth every 3 days * Fluticasone Propionate (FLONASE NA) [place] 2 sprays into the nose once daily * Multiple Vitamins-Minerals (PRESERVISION AREDS PO) Take by mouth once daily * Zoledronic Acid (RECLAST IV) * hydroCHLOROthiazide (HYDRODIURIL) 25 MG tablet Take 25 mg by mouth once daily * Oxymetazoline HCl (AFRIN 12 HOUR NA) [place] 2 sprays into the nose as needed * [place]-3 Fatty Acids (OMEGA-3 FISH OIL) 1000 MG capsule Take by mouth once daily * clonazePAM (KLONOPIN) 0.5 MG tablet Take 0.5 mg by mouth 3 times daily * HYDROcodone-acetaminophen (NORCO) 5-325 MG tablet(Started 06/16/2019) Take 1-2 tablets by mouth every 4 hours as needed * lidocaine (LIDODERM) 5 % patch(Started 06/16/2019) Apply 1 patch to skin every 24 hours * methocarbamol (ROBAXIN) 500 MG tablet(Started 06/16/2019) Take 1 tablet by mouth every 12 hours as needed for Muscle Spasms * TIZANIDINE HCL PO * methylPREDNISolone (MEDROL DOSEPAK) 4 MG tablet(Started 07/05/2019) Take by mouth as directed Active Problems Problem Noted Date Diagnosed Date Low back pain 06/15/2019 S/P lumbar fusion 02/24/2019 DDD (degenerative disc disease), lumbar 02/25/20 19 Immunizations * INFLUENZA VACCINE, QUADR. (FLUZONE; FLULAVAL; FLUARIX; AFLURIA QUADRIVALENT; 6MO+), 0.5 ML (IIV4)(Given 06/17/2019) Social History Tobacco Use Types Packs/Day Years [...] Mass Index 22.47 06/15/2019 10:54 AM CDT Medical Devices Implanted Type Area Microfilm Processor Device Identifier Shelf Expiration Date Model / Serial / Lot Putty 5cc Bone Grft Peptide Enhance Implanted:Qty: 1 on 02/24/2019 by Tyree Ramey II, MD at [facility] Spine Lumbar [employer] 12/01/2021 [id number] / / [id number] 33 Mm Coverplate Implanted:Qty: 1 on 02/24/2019 by Tyree Ramey II, MD at [facility] Spine Lumbar 49.0033 / [id number] / Screw 5mm 25mm Spne Semiconstrain - [id number] Implanted:Qty: 4 on 02/24/2019 by Tyree Ramey II, MD at [facility] Spine Lumbar [employer] Inc [id number] / [id number] / 33 X 28mm Pillar Implant Implanted:Qty: 1 on 02/24/2019 by Tyree Ramey II, MD at [facility] Spine Lumbar [id number] / [id number] / Rosendo Spnl 30mm 4.75mm Cd Hzn Solera Crv Implanted:Qty: 1 on 06/15/2019 by Tyree Ramey II, MD at [facility] Spine Lumbar Medtronic Inc [id number] / / Graft Bone Magnifuse Dbm 5x1cm Spne Crv - [id number] Implanted:Qty: 1 on 06/15/2019 by Tyree Ramey II, MD at [facility] Spine Lumbar [employer] Inc 02/22/2021 [id number] / [id number] / Screw 6.5mm 40mm 2 Ld Thrd Frm Ma Clr Cd Implanted:Qty: 3 on 06/15/2019 by Tyree Ramey II, MD at [facility] Spine Lumbar [employer] Inc [id number] / / [id number] Screw 6.5mm 35mm 2 Ld Thrd Frm Ma Clr Cd Implanted:Qty: 1 on 06/15/2019 by Tyree Ramey II, MD at [facility] Spine Lumbar Med[employer] Inc [id number] / / Screw Set Ti 4.75mm Spne Nonster Implanted:Qty: 1 on 06/15/2019 by Tyree Ramey II, MD at [facility] Spine Lumbar Medtronic [employer] [id number] / / Rosendo Spnl 35mm 4.75mm Cd Hzn Solera Crv Implanted:Qty: 1 on 06/15/2019 by Tyree Ramey II, MD at [facility] Spine Lumbar Med[employer]onic Inc [id number] / / Explanted Type Area Microfilm Processor Device Identifier Shelf Expiration Date Model / Serial / Lot Screw 3.5mm 18mm Jacek Slf-Tap T20 Strdr Explanted:Qty: 1 on 02/24/2019 at [facility] [employer] [id number] / / Procedures * NM BRAIN IMAGING JENNIFER SCAN(Performed 02/13/2022) Performed for Tremor * XR LUMBAR SPINE 2 OR 3VW(Performed 09/04/2019) Performed for S/P lumbar fusion * APHERESIS/TRANSFUSION ORDER(Performed 06/19/2019) * EMG(Performed 06/19/2019) * CARDIAC RHYTHM STRIP ORDER(Performed 06/19/2019) * FL ART SURGERY(Performed 06/15/2019) Performed for Low back pain, unspecified back pain laterality, unspecified chronicity, with sciatica presence unspecified * XR LUMBAR SPINE IN OR 1VW(Performed 06/15/2019) Performed for Low back pain, unspecified back pain laterality, unspecified chronicity, with sciatica presence unspecified * ENDOTRACHEAL TUBE NOTE(Performed 06/15/2019) * FUSION TRANSFORAMINAL LUMBAR INTERBODY (TLIF)(Performed 06/15/2019) * TYPE + SCREEN PANEL(Performed 06/07/2019) Performed for Preop examination * URINALYSIS REFLEX MICROSCOPIC REFLEX CULTURE(Performed 06/07/2019) Performed for Preop examination * CULTURE MSSA/MRSA(Performed 06/07/2019) Performed for Preop examination * XR LUMBAR SPINE 2 OR 3VW(Performed 05/24/2019) Performed for S/P lumbar fusion * APHERESIS/TRANSFUSION ORDER(Performed 02/28/2019) * EMG(Performed 02/28/2019) * XR LUMBAR SPINE 2 OR 3VW(Performed 02/25/2019) Performed for S/P lumbar fusion * FL ART SURGERY(Performed 02/24/2019) Performed for Low back pain, unspecified back pain laterality, unspecified chronicity, with sciatica presence unspecified * PERIPHERAL IV NOTE(Performed 02/24/2019) * ENDOTRACHEAL TUBE NOTE(Performed 02/24/2019) * FUSION ANTERIOR LUMBAR INTERBODY (ALIF)(Performed 02/24/2019) * BASIC METABOLIC PANEL (CALCIUM TOTAL)(Performed 02/24/2019) Performed for Preop examination * BLOOD TYPE VERIFICATION(Performed 02/24/2019) * URINE MICROSCOPIC ONLY REFLEX TO CULTURE(Performed 02/09/2019) Performed for Preop examination * URINALYSIS REFLEX MICROSCOPIC REFLEX CULTURE(Performed 02/09/2019) Performed for Preop examination * CULTURE URINE(Performed 02/09/2019) Performed for Preop examination * CULTURE MSSA/MRSA(Performed 02/09/2019) Performed for Preop examination * TYPE + SCREEN PANEL(Performed 02/09/2019) Performed for Preop examination * CBC W AUTO DIFFERENTIAL(Performed 02/09/2019) Performed for Preop examination * COMPREHENSIVE METABOLIC PANEL(Performed 02/09/2019) Performed for Preop examination * EKG 12-LEAD(Performed 02/09/2019) Performed for Preop examination * XR FINGER(S) LEFT(Performed 05/13/2010) Performed for Pain in Soft Tissues of Limb * IMAGING/RADIOLOGY/XRAY RESULTS ORDER(Performed 1950) Results * NM BRAIN IMAGING JENNIFER SCAN (02/13/2022 2:51 PM CDT) Anatomical Region Laterality Modality Head Nuclear Medicine 02/13/2022 2:41 PM CDT Impressions 02/13/2022 4:31 PM CDT Impression: Abnormal DaTscan study, lost of comma shape of radiotracer activity within the basal ganglia which is supportive of parkinsonian syndromes. This report was approved by Regan Guerrero on 02/13/2022 2:59 PM . IDr. JUDSON D.O. have personally reviewed and interpreted this examination/study. This report was electronically signed by JUDSON ROMO D.O. on 02/13/2022 4:31 PM . Narrative 02/13/2022 4:31 PM CDT Procedure: Dopamine transporter (DaTscan) brain SPECT/CT History: 71 year oldfemale w/ Tremor. Patient's BMI 24.79 kg/m2. Technique: 45 minutes after oral administration of SSKI for thyroid blockade, 5.44 mCi I-123 Ioflupane was administered intravenously in the left antecubital fossa. Three hours later, tomographic whole brain SPECT/CT imaging was performed. Low-dose noncontrast CT was performed. Findings: No similar prior study is available for comparison. Uptake in the striatum appears as follows: LeftRight caudate nucleus headMildly reducedNormal putamenAbsentAbsent Low-dose CT within the imaged [id number] images are unremarkable. Procedure Note Judson Romo, DO - 02/13/2022 Procedure: Dopamine transporter (DaTscan) brain SPECT/CT History: 71 year oldfemale w/ Tremor. Patient's BMI 24.79 kg/m2. Technique: 45 minutes after oral administration of SSKI for thyroid blockade, 5.44 mCi I-123 Ioflupane was administered intravenously in the left antecubital fossa. Three hours later, tomographic whole brain SPECT/CT imaging was performed. Low-dose noncontrast CT was performed. Findings: No similar prior study is available for comparison. Uptake in the striatum appears as follows: LeftRight caudate nucleus headMildly reducedNormal putamenAbsentAbsent Low-dose CT within the imaged [id number] images are unremarkable. Impression: Abnormal DaTscan study, lost of comma shape of radiotracer activitywithin the basal ganglia which is supportive of parkinsonian syndromes. This report was approved by Regan Guerrero on 02/13/2022 2:59 PM . IDr. JUDSON D.O. have personally reviewed and interpreted this examination/study. This report was electronically signed by JUDSON ROMO D.O. on02/13/2022 4:31 PM . Alexandr Duncan MD NM ORDERABLES * XR LUMBAR SPINE 2 OR 3VW (09/04/2019) Only the most recent of3 resultswithin the time period is included. Anatomical Region Laterality Modality Spine Other Tyree Ramey II, MD DIAGNOSTIC IMAGING ORDERABLES * APHERESIS/TRANSFUSION ORDER (06/19/2019 9:07 PM CDT) Only the most recent of2 resultswithin the time period is included. Narrative 06/19/2019 9:07 PM CDT Ordered by an unspecified provider. Scanned Document NURSING - VITAL SIGN S AND ASSESSMENT * EMG (06/19/2019 9:07 PM CDT) Narrative 06/19/2019 9:07 PM CDT Ordered by an unspecified provider. Scanned Document NEUROLOGY ORDERABLES * CARDIAC RHYTHM STRIP ORDER (06/19/2019 9:07 PM CDT) Narrative 06/19/2019 9:07 PM CDT Ordered by an unspecified provider. Scanned Document CARDIAC SERVICES ORD ERABLES * FL ART SURGERY (06/15/2019 4:00 PM CDT) Only the most recent of2 resultswithin the time period is included. Anatomical Region Laterality Modality Radiographic Savanna ging 06/15/2019 4:47 PM CDT Narrative 06/15/2019 4:45 PM CDT INTRAOPERATIVE FLUOROSCOPY HISTORY: Back pain. FINDINGS: Total fluoroscopy time 5.1 minutes. Two conventional fluoroscopic images are presented showing anterior and posterior L5-S1 fusion. Additional stealth images are also submitted showing similar findings. Edited by Smiley Sánchez on 06/15/2019 4:52 PM Reading Radiologist: Chidi Diehl MD on 06/15/2019 at 5:57 PM Procedure Note Chidi Diehl MD - 06/15/2019 INTRAOPERATIVE FLUOROSCOPY HISTORY: Back pain. FINDINGS: Total fluoroscopy time 5.1 minutes. Two conventional fluoroscopic images are presented showing anterior and posterior L5-S1 fusion. Additional stealth images are also submitted showing similar findings. Edited by Smiley Sánchez on 06/15/2019 4:52 PM Reading Radiologist: Chidi Diehl MD on 06/15/2019 at 5:57 PM Tyree Ramey II, MD FLUOROSCOPY ORDERABLES * XR LUMBAR SPINE IN OR 1VW (06/15/2019 2:29 PM CDT) Anatomical Region Laterality Modality Spine Radiographic Savanna ging 06/15/2019 2:33 PM CDT Narrative 06/15/2019 3:09 PM CDT LUMBAR SPINE ONE VIEW INDICATION: Low back pain. FINDINGS: Single crosstable lateral view of the lumbar spine compared to February 25, 2019 shows anterior fusion of L5-S1 with screws and intervertebral disc space. Posterior metallic retractor device is present. There is a posterior marker at the L5-S1 level. There is mild anterolisthesis L5 upon S1. Edited by Smiley Sánchez on 06/15/2019 2:47 PM Reading Radiologist: Toribio Sanford MD on 06/15/2019 at 3:09 PM Procedure Note Toribio Sanford MD - 06/15/2019 LUMBAR SPINE ONE VIEW INDICATION: Low back pain. FINDINGS: Single crosstable lateral view of the lumbar spine compared to February 25, 2019 shows anterior fusion of L5-S1 with screws and intervertebral disc space. Posterior metallic retractor device is present. There is a posterior marker at the L5-S1 level. There is mild anterolisthesis L5 upon S1. Edited by Smiley Sánchez on 06/15/2019 2:47 PM Reading Radiologist: Toribio Sanford MD on 06/15/2019 at 3:09 PM Tyree Ramey II, MD DIAGNOSTIC IMAGING ORDERABLES * ENDOTRACHEAL TUBE NOTE (06/15/2019 1:05 PM CDT) Narrative Juanita Marin DO - 06/15/2019 1:05 PM CDT Juanita Marin DO 06/15/2019 1:06 PM Endotracheal Tube Placement: Patient Location: OR. Procedure: intubation (70454). Procedure Section: Sedation: under general anesthesia. Indications for Airway Management: anesthesia Procedure pretreatments used? No Induction: standard IV Patient Position: sniffing Mask Ventilation: easy. Blade Type: Video Blade Size: 4 Laryngoscopy View: grade 1 (full cords) Intubation Adjuncts: stylet and video laryngoscope Tube: endotracheal tube Placement: oral Tube type: cuff - inflated Tube Size (MM): 7 Measured From: teeth Cuff volume (mL): 10 Cuff Inflated With: air Number of Attempts: 2 (INITIAL ETT FOR INTUBATION HAD MALFUNCTIONING CUFF, REPLACED WITH EASE AND NO ISSUE). Placement Verified By: CO2 monitor Tube secured with: adhesive tape. Difficult Airway? No. Staff Section Anesthesia Provider: Juanita Marin DO, Performed the procedure Juanita Marin DO GENERAL ANESTHESIA O RDERABLES * CULTURE MSSA/MRSA (06/07/2019 1:00 PM CDT) Only the most recent of2 resultswithin the time period is included. Culture Negative for Staphylococcus aureus (MRSA/MSSA) KAREN 06/08/2019 5:[address] [facility]CRO[facility] Microbiology SPECIMEN FROM NASAL FOSSAE / Unknown Collection / Unknown 06/07/2019 1:00 PM CDT 06/07/2019 1:55 PM CDT Ina Arboleda VEGETABLE INSPECTOR-BATCH UNLOADER LAB - MICR OBIOLOGY ORDERABLES [facility] [address] [place] [address], [facility] [phone] * URINALYSIS REFLEX MICROSCOPIC REFLEX CULTURE (06/07/2019 1:00 PM CDT) Only the most recent of2 resultswithin the time period is included. Color UA Straw Straw, Yellow 06/07/2019 2:01 PM CDT [facility] Clarity UA Clear Clear 06/07/2019 2:01 PM CDT [facility] Glucose UA Negative Negative 06/07/2019 2:01 PM CDT [facility] Bilirubin UA Negative Negative 06/07/2019 2:01 PM CDT [facility] Ketone UA Negative Negative 06/07/2019 2:01 PM CDT [facility] Specific [place] UA 1.006 1.005 - 1.030 06/07/2019 2:01 PM CDT [facility] Blood UA Negative Negative 06/07/2019 2:01 PM CDT [facility] pH UA 7.0 5.0 - 8.0 pH 06/07/2019 2:01 PM CDT [facility] Protein UA Negative Negative 06/07/2019 2:01 PM CDT [facility] Urobilinogen UA Negative Negative mg/dL 06/07/2019 2:01 PM CDT [facility] Nitrite UA Negative Negative 06/07/2019 2:01 PM CDT [facility] Leukocyte UA Negative Negative 06/07/2019 2:01 PM CDT [facility] Urine Microscopy Urine microscopy not indicated 06/07/2019 2:01 PM CDT [facility] Reflex Status Culture not indicated 06/07/2019 2:01 PM CDT [facility] Urine URINE SPECIMEN OBTAINED BY CLEAN CATCH PROCEDURE / Unknown Collection / Unknown 06/07/2019 1:00 PM CDT 06/07/2019 1:55 PM CDT Narrative [facility] - 06/07/2019 2:01 PM CDT Ascorbic Acid can cause false negative urine strip tests for blood, glucose, nitrite, and bilirubin. Tyree Ramey II, MD LAB - URINA LYSIS ORDERABLES Performing Organization Address [facility] Co de Phone Number [facility] [address] [place] [address] * TYPE + SCREEN PANEL (06/07/2019 1:00 PM CDT) Only the most recent of2 resultswithin the time period is included. ABO O 06/07/2019 2:32 PM CDT [facility] Rh Type Positive 06/07/2019 2:32 PM CDT [facility] Comment:History checked. Antibody Screen Negative 06/07/2019 2:32 PM CDT [facility] Blood Bank BLOOD SPECIMEN / Unknown Venipuncture / Unknown 06/07/2019 1:00 PM CDT 06/07/2019 1:55 PM CDT Juanita Marin DO LAB - BLOOD BANK ORD ERABLES Performing Organization Address [facility] [place] [address], [facility] * EMG (02/28/2019 6:42 PM CDT) Narrative 02/28/2019 6:42 PM CDT Ordered by an unspecified provider. Scanned Document NEUROLOGY ORDERABLES * BASIC METABOLIC PANEL (CALCIUM TOTAL) (02/24/2019 12:02 PM CDT) Glucose 95 74 - 106 mg/dL 02/24/2019 12:34 PM CDT [facility] Sodium 140 136 - 145 mmol/L 02/24/2019 12:34 PM CDT [facility] Potassium 3.9 3.5 - 5.1 mmol/L 02/24/2019 12:34 PM CDT [facility] Chloride 100 98 - 107 mmol/L 02/24/2019 12:34 PM CDT [facility] CO2 30 23 - 31 mmol/L 02/24/2019 12:34 PM CDT [facility] Calcium 9.5 8.4 - 10.2 mg/dL 02/24/2019 12:34 PM CDT [facility] Anion Gap 10 8 - 16 mmol/L 02/24/2019 12:34 PM CDT [facility] BUN 17 9.8 - 20.1 mg/dL 02/24/2019 12:34 PM CDT [facility] Creatinine 0.73 0.55 - 1.02 mg/dL 02/24/2019 12:34 PM CDT [facility] eGFR by MDRD >60 >60 mL/min/1.7 3m2 02/24/2019 12:34 PM CDT [facility] eGFR by MDRD >60 >60 mL/min/1.7 3m2 02/24/2019 12:34 PM CDT [facility] Blood BLOOD SPECIMEN / Unknown Venipuncture / Unknown 02/24/2019 12:02 PM CDT 02/24/2019 12:15 PM CDT Narrative [facility] - 02/24/2019 12:34 PM CDT Attention clinician: BUN Reference Range has changed. Juanita Marin DO LAB - CHEMISTRY [place] [facility] [address] [place] [address] * BLOOD TYPE VERIFICATION (02/24/2019 12:01 PM CDT) ABO O 02/24/2019 12:31 PM CDT [facility] Rh Type Positive 02/24/2019 12:31 PM CDT [facility] Blood Bank BLOOD SPECIMEN / Unknown Venipuncture / Unknown 02/24/2019 12:01 PM CDT 02/24/2019 12:09 PM CDT Tyree Ramey II, MD LAB - BLOOD BANK ORDERABLES Performing Organization Address [facility] de Phone Number [facility] [id number] * URINE MICROSCOPIC ONLY REFLEX TO CULTURE (02/09/2019 1:43 PM CDT) Reflex Status Culture to follow 02/09/2019 2:07 PM CDT [facility] RBC UA 0-2 None Seen, 0-2, 3-5 # /hpf 02/09/2019 2:07 PM CDT [facility] WBC UA 0-5 None Seen, 0-5 # /hpf 02/09/2019 2:07 PM CDT [facility] Bacteria UA None Seen None Seen 02/09/2019 2:07 PM CDT [facility] Squamous Epithelial Cells 0-2 None Seen, 0-2, 3-5 /hpf 02/09/2019 2:07 PM CDT [facility] Mucus UA 1+ /LPF 02/09/2019 2:07 PM CDT [facility] Urine URINE SPECIMEN OBTAINED BY CLEAN CATCH PROCEDURE / Unknown Collection / Unknown 02/09/2019 1:43 PM CDT 02/09/2019 1:56 PM CDT Narrative [facility] - 02/09/2019 2:07 PM CDT Tyree Ramey II, MD LAB - URINA LYSIS ORDERABLES Performing Organization Address City/[facility]/ZIP Co de Phone Number [facility] [address] [place] [address] * CULTURE URINE (02/09/2019 1:43 PM CDT) Culture Urine <10,000 CFU/mL urogenital patrick KAREN 02/11/2019 10:[address] [facility] Urine URINE SPECIMEN OBTAINED BY CLEAN CATCH PROCEDURE / Unknown Collection / Unknown 02/09/2019 1:43 PM CDT 02/09/2019 1:56 PM CDT Tyree Ramey II, MD LAB - MICRO BIOLOGY ORDERABLES [facility] [address] [place] [address], [facility] [phone] * CBC W AUTO DIFFERENTIAL (02/09/2019 1:38 PM CDT) WBC 5.1 4.4 - 10.7 x10E9/L 02/09/2019 1:57 PM CDT [facility] WBC Corrected x10E9/L 02/09/2019 1:57 PM CDT [facility] RBC 4.38 3.80 - 5.20 x10E12/L 02/09/2019 1:57 PM CDT [facility] Hemoglobin 13.7 12.0 - 15.6 gm/dL 02/09/2019 1:57 PM CDT [facility] Hematocrit 41.4 35.9 - 45.5 % 02/09/2019 1:57 PM CDT [facility] MCV 94.5 80.7 - 98.3 fl 02/09/2019 1:57 PM CDT [facility] MCH 31.3 26.7 - 34.0 pg 02/09/2019 1:57 PM CDT [facility] MCHC 33.1 30.8 - 35.9 gm/dL 02/09/2019 1:57 PM CDT [facility] Platelet Count 176 153 - 416 x10E9/L 02/09/2019 1:57 PM CDT [facility] RDW-CV 13.7 12.1 - 14.9 % 02/09/2019 1:57 PM CDT [facility] MPV 10.0 9.4 - 12.9 fl 02/09/2019 1:57 PM CDT [facility] Neutrophils % 54.5 44.0 - 73.0 % 02/09/2019 1:57 PM CDT [facility] Lymphocytes % 32.5 20.0 - 43.0 % 02/09/2019 1:57 PM CDT [facility] Monocytes % 10.0 5.0 - 13.0 % 02/09/2019 1:57 PM CDT [facility] Eosinophils % 2.0 0.0 - 6.0 % 02/09/2019 1:57 PM CDT [facility] Basophils % 0.6 0.0 - 2.0 % 02/09/2019 1:57 PM CDT [facility] Immature Granulocytes 0.4 0 - 1 % 02/09/2019 1:57 PM CDT [facility] Neutrophil Absolute 2.78 2.01 - 7.14 x10E9/L 02/09/2019 1:57 PM CDT [facility] Lymphocytes Absolute 1.66 1.07 - 3.94 x10E9/L 02/09/2019 1:57 PM CDT [facility] Monocytes Absolute 0.51 0.26 - 1.07 x10E9/L 02/09/2019 1:57 PM CDT [facility] Eosinophils Absolute 0.10 0 - 0.47 x10E9/L 02/09/2019 1:57 PM CDT [facility] Basophils Absolute 0.03 0 - 0.08 x10E9/L 02/09/2019 1:57 PM CDT [facility] Immature Granulocytes Absolute 0.02 0.00 - 0.06 x10E9/L 02/09/2019 1:57 PM CDT [facility] nRBC Auto 0 /100 WBC 02/09/2019 1:57 PM CDT [facility] Blood BLOOD SPECIMEN / Unknown Venipuncture / Unknown 02/09/2019 1:38 PM CDT 02/09/2019 1:56 PM CDT Ina Arboleda VEGETABLE INSPECTOR-BATCH UNLOADER LAB - [place] TOLOGY ORDERABLES [facility] [address] [place] [address] * COMPREHENSIVE METABOLIC PANEL (02/09/2019 1:38 PM CDT) [facility] Glucose 91 74 - 106 mg/dL 02/09/2019 2:51 PM CDT [facility] Sodium 139 136 - 145 mmol/L 02/09/2019 2:51 PM CDT [facility] Potassium 3.7 3.5 - 5.1 mmol/L 02/09/2019 2:51 PM CDT [facility] Chloride 101 98 - 107 mmol/L 02/09/2019 2:51 PM CDT [facility] CO2 30 23 - 31 mmol/L 02/09/2019 2:51 PM CDT [facility] Calcium 9.6 8.4 - 10.2 mg/dL 02/09/2019 2:51 PM CDT [facility] Anion Gap 8 8 - 16 mmol/L 02/09/2019 2:51 PM CDT [facility] BUN 15 9.8 - 20.1 mg/dL 02/09/2019 2:51 PM CDT [facility] Creatinine 0.73 0.55 - 1.02 mg/dL 02/09/2019 2:51 PM CDT [facility] Alkaline Phosphatase 75 40 - 150 U/L 02/09/2019 2:51 PM CDT [facility] ALT 27 13 - 61 U/L 02/09/2019 2:51 PM CDT [facility] AST 29 5 - 34 U/L 02/09/2019 2:51 PM CDT [facility] Protein Total 6.8 6.4 - 8.3 gm/dL 02/09/2019 2:51 PM CDT [facility] Albumin 4.3 3.2 - 4.6 gm/dL 02/09/2019 2:51 PM CDT [facility] LABORATORY Bilirubin Total 0.5 0.2 - 1.0 mg/dL 02/09/2019 2:51 PM CDT [facility] eGFR by MDRD >60 >60 mL/min/1.7 3m2 02/09/2019 2:51 PM CDT [facility] eGFR by MDRD >60 >60 mL/min/1.7 3m2 02/09/2019 2:51 PM CDT [facility] Blood BLOOD SPECIMEN / Unknown Venipuncture / Unknown 02/09/2019 1:38 PM CDT 02/09/2019 2:38 PM CDT Narrative [facility] - 02/09/2019 2:51 PM CDT Attention clinician: BUN Reference Range has changed. Ina Arboleda VEGETABLE INSPECTOR-BATCH UNLOADER LAB - CHEM ISTRY ORDERABLES [facility] [address] [place] [address] * EKG 12-LEAD (02/09/2019 1:29 PM CDT) Ventricular Rate 77 BPM [facility] Atrial Rate 77 BPM [facility] P-R Interval 180 ms [facility] QRS Duration ms 86 ms [facility] Q-T Interval ms 376 ms [facility] QTC Calculation (Bezet) 425 ms [facility] Calculated P [place] 43 degrees [facility] Calculated R [place] -38 degrees [facility] Calculated T [place] 26 degrees [facility] Interpretation EKG Normal sinus rhythm Possible Left atrial enlargement Left axis deviation RSR' or QR pattern in V1 suggests right ventricular conduction delay Possible Anterior infarct , age undetermined Abnormal ECG Confirmed by SAMMIE BURLESON MDSH ([id number]) on 02/10/2019 11:55:29 AM [facility] 02/09/2019 1:29 PM CDT 02/10/2019 11:55 AM CDT Ina Arboleda VEGETABLE INSPECTOR-BATCH UNLOADER ECG ORDERA [facility] * XR FINGER(S) LEFT (05/13/2010 10:18 AM CDT) Anatomical Region Laterality Modality Upper Extremity, Wrist / Hand Ra diographic Imaging 05/13/2010 1:35 PM CDT Impressions 05/13/2010 1:35 PM CDT Significant degenerative change basal joint of the left thumb. Narrative 05/13/2010 1:35 PM CDT Indication: Left thumb pain Three views of the left thumb show significant and severe degenerative change of the basilar joint of the thumb. There are well-corticated calcifications seen adjacent to the scaphoid. There is remodeling of the joint. Procedure Note Lise Knox MD - 05/13/2010 Indication: Left thumb pain Three views of the left thumb show significant and severe degenerative change of the basilar joint of the thumb. There are well-corticated calcifications seen adjacent to the scaphoid. There is remodeling of the joint. 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 Gladys Peraza MD DIAGNOSTIC IMAGING O RDERABLES * IMAGING/RADIOLOGY/XRAY RESULTS ORDER (1952) Anatomical Region Laterality Modality Other Julieta Godfrey APRN-BATCH UNLOADER IMAGING Care Teams Packer Insulation Relationship Specialty Start Date End Date Harman Mac MD [address] [place] [address] PCP - General 05/24/18
--- OUTSIDE RECORDS SUMMARY | 2024-12-11 14:18 | XMS_ITS | Referral Summary ---
Author Organization [facility] Address [address] [address] Care Team Providers Care Worship Director Name Role Phone Harman Mac MD Primary Care Provider [phone] Source Comments [facility],non-owned Affiliates and Associated Physician Practices is amultiple site organization consisting of ambulatory clinics and hospital sitesin [place], [place], [place] and [place]. This disclosure is being madepursuant to the Care Everywhere program and may not contain all information available regarding this patient. Last updated 18.[facility] Allergies No known active allergies Medications [...] once daily Active vitamin D, ergocalciferol, (DRISDOL) 96935 units capsule Take by mouth every 3 days Active Fluticasone Propionate (FLONASE NA) [place] 2 sprays into the nose once daily Active Multiple Vitamins-Minerals (PRESERVISION AREDS PO) Take by mouth once daily Active Zoledronic Acid (RECLAST IV) Active hydroCHLOROthiazide (HYDRODIURIL) 25 MG tablet Take 25 mg by mouth once daily Active Oxymetazoline HCl (AFRIN 12 HOUR NA) [place] 2 sprays into the nose as needed Active [place]-3 Fatty Acids (OMEGA-3 FISH OIL) 1000 MG [...] AFLURIA QUADRIVALENT; 6MO+), 0.5 ML (IIV4) 06/17/2019 Social History Tobacco Use Types Packs/Day [...] Mass Index 22.47 06/15/2019 10:54 AM CDT Functional Status Functional Status Response Date of Assess ment Is person deaf or have serious hearing difficult y? No 06/16/2019 Is person blind or have serious difficulty seein g? No 06/16/2019 Does person have serious dif ficulty walking/climbing stairs? No 06/16/2019 Does person have difficulty dressing/bathing? No 06/16/2019 Does person have difficulty doing errands alone? No 06/16/2019 Cognitive Status Response Date of Assessm ent Does person have difficulty concentrating/remembering/making decisions? No 06/16/2019 Plan of Treatment Not on file Medical Devices Implanted Type Area Airport Maintenance Chief Device Identifier Shelf Expiration Date Model / Serial / Lot Putty 5cc Bone Grft Peptide Enhance Implanted:Qty: 1 on 02/24/2019 by Tyree Ramey II, MD at [facility] Spine Lumbar Cerapedics 12/01/2021 700-050 / / [id number] Mm Coverplate Implanted:Qty: 1 on 02/24/2019 by Tyree Ramey II, MD at [facility] Spine Lumbar 49.0033 / [id number] / Screw 5mm 25mm Spne Semiconstrain - [id number] Implanted:Qty: 4 on 02/24/2019 by Tyree Ramey II, MD at [facility] Spine Lumbar Orthofix Inc [id number] / [id number] / 33 X 28mm Pillar Implant Implanted:Qty: 1 on 02/24/2019 by Tyree Ramey II, MD at [facility] Spine Lumbar [id number] / [id number] / Rosendo Spnl 30mm 4.75mm Cd Hzn Solera Crv Implanted:Qty: 1 on 06/15/2019 by Tyree Ramey II, MD at [facility] Spine Lumbar Medtronic Inc [id number] / / Graft Bone Magnifuse Dbm 5x1cm Spne Crv - [id number] Implanted:Qty: 1 on 06/15/2019 by Tyree Ramey II, MD at [facility] Spine Lumbar Osteotech Inc 02/22/2021 [id number] / [id number] / Screw 6.5mm 40mm 2 Ld Thrd Frm Ma Clr Cd Implanted:Qty: 3 on 06/15/2019 by Tyree Ramey II, MD at [facility] Spine Lumbar Medtronic Inc [id number] / / [id number] Screw 6.5mm 35mm 2 Ld Thrd Frm Ma Clr Cd Implanted:Qty: 1 on 06/15/2019 by Tyree Ramey II, MD at [facility] Spine Lumbar Medtronic Inc [id number] / / Screw Set Ti 4.75mm Spne Nonster Implanted:Qty: 1 on 06/15/2019 by Tyree Ramey II, MD at [facility] Spine Lumbar Medtronic Sofamor Danek Inc [id number] / / Rosendo Spnl 35mm 4.75mm Cd Hzn Solera Crv Implanted:Qty: 1 on 06/15/2019 by Tyree Ramey II, MD at [facility] Spine Lumbar Medtronic Inc [id number] / / Explanted Type Area Airport Maintenance Chief Device Identifier Shelf Expiration Date Model / Serial / Lot Screw 3.5mm 18mm Jacek Slf-Tap T20 Strdr Explanted:Qty: 1 on 02/24/[address] [facility] [employer] [id number] / / Advance Directives Documents on File Type Date Recorded Patient Dry Cleaning Manager Expl anation Adv Directive/Living Will/POA 02/28/2019 6:42 PM * Full Code (Latest Code Status on File) Date Activated Date Inactivated Comments 06/15/2019 7:34 PM 06/17/2019 1:30 PM * Full Code Date Activated Date Inactivated Comments 02/24/2019 8:03 PM 02/26/2019 3:30 PM * Full Code Date Activated Date Inactivated Comments 02/24/2019 8:02 PM 02/24/2019 8:03 PM Care Teams Worship Director Relationship Specialty Start Date End Date Harman Mac MD [address] [address] PCP - General 05/24/18
== END 2024-12-11 12:24 | disposition home or self-care (01) ==
LOC: CHSIMG 12:24
PROVIDERS: PCP Family Medicine; Visit Provider Obstetrics & Gynecology Gynecology
DX: Z12.31 Encounter for screening mammogram for malignant neoplasm of breast (principal)
CPT/HCPCS: 77063; 77067

== ENCOUNTER 2025-04-13 10:59 | Outpatient (CLI) | payer MEDICARE, SELFPAY ==
--- OUTSIDE RECORDS SUMMARY | 2025-04-13 11:06 | XMS_ITS | Clinical Summary ---
Author Organization [facility] Address [address] [facility] Attn: Epic Prelude ADT JESSICAPETERSON TEELISHA SANTACRUZ [address] Care Team Providers Care Support Team Assoc Name Role Phone Unavailable Primary Care Provider [...] 2002 OSTEOPOROSIS SCREENING 2017 INFLUENZA VACCINE (#1) 2025 RSV VACCINE (60+ or ) (1 - 1-dose 75+ series) 2027
--- OUTSIDE RECORDS SUMMARY | 2025-04-13 11:06 | XMS_ITS | Clinical Summary ---
Author Organization [facility] Address [address] [facility] [place] [address] Care Team Providers Care Fruit Peeler Name Role Phone Harman Mac MD Primary Care Provider [phone] Source Comments [facility],non-owned Affiliates and Associated Physician Practices is amultiple site organization consisting of ambulatory clinics and hospital sitesin [place], [place], [place] and [place]. This disclosure is being madepursuant to the Care Everywhere program and may not contain all information available regarding this patient. Last updated 18.[facility] Allergies No known active allergies Medications * Be aware that medications may not be up to date on this document. Alwaysverify current medications with the patient. DULoxetine (CYMBALTA) 30 MG capsule Take 60 mg by mouth once daily Active atomoxetine (STRATTERA) 40 MG capsule Take 20 mg by mouth once daily Active vitamin D, ergocalciferol, (DRISDOL) 34908 units capsule Take by mouth every 3 days Active Fluticasone Propionate (FLONASE NA) [place] 2 sprays into the nose once daily Active Multiple Vitamins-Minera ls (PRESERVISION AREDS PO) Take by mouth once daily Active Zoledronic Acid (RECLAST IV) Active hydroCHLOROthia zide (HYDRODIURIL) 25 MG tablet Take 25 mg by mouth once daily Active Oxymetazoline HCl (AFRIN 12 HOUR NA) [place] 2 sprays into the nose as needed Active [place]-3 Fatty Acids (OMEGA-3 FISH OIL) 1000 MG capsule Take by mouth once daily Active clonazePAM (KLONOPIN) 0.5 MG tablet Take 0.5 mg by mouth 3 times daily Active HYDROcodone-anne taminophen (NORCO) 5-325 MG tablet Take 1-2 tablets by mouth every 4 hours as needed 40 tablet 9 Active Additional Information Patient not taking.Reported on 06/28/2019 lidocaine (LIDODERM) 5 % patch Apply 1 patch to skin every 24 hours 12 patch 9 Active Additional Information Patient not taking.Reported on 06/28/2019 methocarbamol (ROBAXIN) 500 MG tablet Take 1 tablet by mouth every 12 hours as needed for Muscle Spasms 30 tablet 9 Active Additional Information Patient not taking.Reported on 06/28/2019 TIZANIDINE HCL PO Active methylPREDNISol one (MEDROL DOSEPAK) 4 MG tablet Take by mouth as directed 21 tablet 9 Active Additional Information Patient not taking.Reported on 09/11/2019 Active Problems Problem Noted Date Diagnosed Date Low back pain 06/15/2019 S/P lumbar fusion 02/24/2019 DDD (degenerative disc disease), lumbar 02/25/20 19 Immunizations Immunization Administration Dates Next Due INFLUENZA VACCINE, QUADR. 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 CUTTER Gender Identity Not on file Sexual Orientation [...] 10:54 AM CDT Height 165.1 cm (5' 5) 06/15/2019 10:54 AM CDT Body Mass Index [...] VACCINE (1 of 2) 2002 COVID-19 VACCINE (1 - 2023-2 5 season) 2024 DEPRESSION SCREENING 10/04/2024 MEDICARE AWV CALENDAR YEAR 2024 INFLUENZA VACCINE (#1) 2025 06/17/2019 Respiratory Syncytial Virus (RSV) Vaccine Pt: or [...] to complete this topic MENINGOCOCCAL (Group B) VACC INE SHARED DECISION-MAKING Aged Out No longer eligibl e based on patient's age to complete this topic MENINGOCOCCAL GROUPS A/C/Y/W VACCINE Aged Out No longer eligible b ased on patient's age to complete this topic Medical Devices Implanted Type Area Magento Developer Device Identifier Shelf Expiration Date Model / Serial / Lot Putty 5cc Bone Grft Peptide Enhance Implanted:Qty: 1 on 02/24/2019 by Tyree Ramey II, MD at [facility] Spine Lumbar Cerapedics 12/01/2021 700-050 / / [id number] Mm Coverplate Implanted:Qty: 1 on 02/24/2019 by Tyree Ramey II, MD at [facility] Spine Lumbar 49.0033 / [id number] / Screw 5mm 25mm Spne Semiconstrain - [id number] Implanted:Qty: 4 on 02/24/2019 by Tyree Ramey II, MD at [facility] Spine Lumbar Orthofix Inc [id number] / [id number] / 33 X 28mm Pillar Implant Implanted:Qty: 1 on 02/24/2019 by Tyree Ramey II, MD at [facility] Spine Lumbar [id number] / [id number] / Rosendo Spnl 30mm 4.75mm Cd Hzn Solera Crv Implanted:Qty: 1 on 06/15/2019 by Tyree Ramey II, MD at [facility] Spine Lumbar Medtronic Inc [id number] / / Graft Bone Magnifuse Dbm 5x1cm Spne Crv - [id number] Implanted:Qty: 1 on 06/15/2019 by Tyree Ramey II, MD at [facility] Spine Lumbar Osteotech Inc 02/22/2021 [id number] / [id number] / Screw 6.5mm 40mm 2 Ld Thrd Frm Ma Clr Cd Implanted:Qty: 3 on 06/15/2019 by Tyree Ramey II, MD at [facility] Spine Lumbar Medtronic Inc [id number] / / [id number] Screw 6.5mm 35mm 2 Ld Thrd Frm Ma Clr Cd Implanted:Qty: 1 on 06/15/2019 by Tyree Ramey II, MD at [facility] Spine Lumbar Medtronic Inc [id number] / / Screw Set Ti 4.75mm Spne Nonster Implanted:Qty: 1 on 06/15/2019 by Tyree Ramey II, MD at [facility] Spine Lumbar Medtronic Sofamor Danek Inc [id number] / / Rosendo Spnl 35mm 4.75mm Cd Hzn Solera Crv Implanted:Qty: 1 on 06/15/2019 by Tyree Ramey II, MD at [facility] Spine Lumbar Medtronic Inc [id number] / / Explanted Type Area Magento Developer Device Identifier Shelf Expiration Date Model / Serial / Lot Screw 3.5mm 18mm Jacek Slf-Tap T20 Strdr Explanted:Qty: 1 on 02/24/2019 at [facility] [employer] [id number] / / Insurance COVENTRY MEDICARE AETNA MEDICARE ADV AETNA AETNA MEDICARE ADV SELF PAY NO INSURANCE Member Subscriber Plan / Payer (Ef fective for All Dates) Name:Antony Martínez Member ID:Not on file Relation to Subscriber:Not on file Name:ANTONY MARTÍNEZ Subscriber ID:Not on file Address: [address] [place] [id number] Payer ID:Not on file Group ID:Not on file Type:Self Pay Address: [place], [place] Advance Directives Documents on File Type Date Recorded Patient Animal Behaviourist Expl anation Adv Directive/Living Will/POA 02/28/2019 6:42 PM * Full Code (Latest Code Status on File) Date Activated Date Inactivated Comments 06/15/2019 7:34 PM 06/17/2019 1:30 PM * Full Code Date Activated Date Inactivated Comments 02/24/2019 8:03 PM 02/26/2019 3:30 PM * Full Code Date Activated Date Inactivated Comments 02/24/2019 8:02 PM 02/24/2019 8:03 PM Care Teams Fruit Peeler Relationship Specialty Start Date End Date Harman Mac MD [address] [place] [address] PCP - General 05/24/18
--- OUTSIDE RECORDS SUMMARY | 2025-04-13 11:06 | XMS_ITS | Encounter Summary ---
Author Organization [facility] Address [address] [place] [address] Phone Care Team Providers Care Hand Hose Cutter Name Role Phone Shanita Joy MD Primary Care Provider Alexandr Duncan MD Unavailable [phone] Reason for Visit * Reason Comments Medication Refill Encounter Details Date Type Department Care Team (Late st Contact Info) Description 02/12/2022 Refill [facility] - Neurology [facility] [address] [place] [phone] Alexandr Duncan MD [address] [place] [phone] Medication Refill Social History Tobacco Use Types [...] Care Team (Late st Contact Info) Description 06/25/2025 1:15 PM CDT Office Visit [facility] - Neurology [facility] [address] [place] [address] Alexandr Duncan MD [address] [place] [address] documented as of this encounter Visit Diagnoses Not on filedocumented in this encounter Care Teams Hand Hose Cutter Relationship Specialty Start Date End Date Shanita Joy MD PCP - General Family Medicine 12/03/21 Alexandr Duncan MD [address] [place] [address] Consulting Physician Neurology 07/19/23 documented as of this encounter
--- OUTSIDE RECORDS SUMMARY | 2025-04-13 11:06 | XMS_ITS | Encounter Summary ---
Author Organization [facility] Address [address] [place] [address] Phone Care Team Providers Care Dispatcher Service Chief Name Role Phone Shanita Joy MD Primary Care Provider Alexandr Duncan MD Unavailable [phone] Reason for Visit * Reason Comments Medication Refill Encounter Details Date Type Department Care Team (Late Contact Info) Description 07/25/[address] [facility] [address] [place] [phone] Alexandr Duncan MD [address] [place] [phone] Medication Refill Social History Tobacco Use Types [...] Department Care Team (Late Contact Info) Description 06/25/2025 1:15 PM CDT Office Visit [facility] [address] [place] [address] Alexandr Duncan MD [address] [place] [address] documented as of this encounter Visit Diagnoses Not on filedocumented in this encounter Care Teams Dispatcher Service Chief Relationship Specialty Start Date End Date Shanita Joy MD PCP - General Family Medicine 12/03/21 Alexandr Duncan MD [address] [place] [address] Consulting Physician Neurology 07/19/23 documented as of this encounter
--- OUTSIDE RECORDS SUMMARY | 2025-04-13 11:06 | XMS_ITS | Clinical Summary ---
Author Organization [facility] Address [facility] [place] [address] Care Team Providers Care Sales Representatives Name Role Phone Unavailable Primary Care Provider [...] 1 - Tdap) 1971 Mammogram Screening 1992 Pneumococcal Vaccine: 50+ Ye ars (1 of 1 - PCV) 2002 Zoster Vaccines (1 of 2) 2002 Dexa Scan (General) 2017 COVID-19 Vaccine ( - 2023-2 5 season) 2024 RSV Immunization or 60+ Years (1 [...]
--- OUTSIDE RECORDS SUMMARY | 2025-04-13 11:06 | XMS_ITS | Clinical Summary ---
Author Organization [facility] Address [address], [place] [address] Phone Care Team Providers Care Grape Crusher Name Role Phone Shanita Joy MD Primary Care Provider Active Problems Problem Noted Date Diagnosed Date Irritable bowel syndrome 12/19/2021 Diarrhea 12/19/2021 Immunizations Immunization Administration Dates Next Due Influenza, Injectable, Quadrivalent, Preservativ e Free 06/17/2019 Social History Tobacco Use Types Packs/Day Years Used Date Smoking Tobacco: Never Assessed Comments Unknown Sex and Gender Information Value Date Recorded Sex Assigned at Not on file Legal Sex Female 11:05 AM [facility] Gender Identity Not on file Sexual Orientation Not on file Plan of Treatment Health Maintenance Due Date Last Done Comments Pneumococcal PPSV23/PCV13 65 + Years / Low and Medium Risk (1 of 2 - PCV) 2002 Influenza Vaccine (#1) 2025 06/17/2019 Insurance AETNA MEDICARE ADVANTAGE Care Teams Grape Crusher Relationship Specialty Start Date End Date Shanita Joy MD [address] [place] [address] PCP - General Internal Medicine 12/01/21
--- OUTSIDE RECORDS SUMMARY | 2025-04-13 11:06 | XMS_ITS | Encounter Summary ---
Author Organization [facility] Address [address] [place] [address] Phone Care Team Providers Care Supervisor Farm Equipment Maintenance Name Role Phone Shanita Joy MD Primary Care Provider Alexandr Duncan MD Unavailable [phone] Reason for Visit * Reason Comments Medication Refill Encounter Details Date Type Department Care Team (Late st Contact Info) Description 12/24/2023 Refill [facility] [address] [place] [address] Alexandr Duncan MD [address] [place] [phone] Medication Refill Social History Tobacco Use Types [...] Dept 08/30/23 Office Visit Alexandr Duncan MD [facility] Neurology [facility] Showing recent visits within past 365 days and meeting all other requirements Future Appointments Date Type Provider Dept 03/20/24 Appointment Alexandr Duncan MD [facility] Showing future appointments within next 90 days and meeting all other requirements documented in this encounter Plan of Treatment Upcoming Encounters Date Type Department Care Team (Late st Contact Info) Description 06/25/2025 1:15 PM CDT Office Visit [facility] - [facility] [address] [place] [address] Alexandr Duncan MD [address] [place] [address] documented as of this encounter Visit Diagnoses Not on filedocumented in this encounter Care Teams Supervisor Farm Equipment Maintenance Relationship Specialty Start Date End Date Shanita Joy MD PCP - General Family Medicine 12/03/21 Alexandr Duncan MD [address] [place] [address] Consulting Physician Neurology 07/19/23 documented as of this encounter
--- OUTSIDE RECORDS SUMMARY | 2025-04-13 11:06 | XMS_ITS | Encounter Summary ---
Author Organization [facility] Address [address] [place] [address] Phone Care Team Providers Care Hospice Home Care Coordinator Name Role Phone Shanita Joy MD Primary Care Provider Alexandr Duncan MD Unavailable Reason for Visit * Reason Comments Medication Refill Encounter Details Date Type Department Care Team (Late st Contact Info) Description 03/08/2022 Refill [facility] - Neurology [facility] [address] [place] [phone] Alexandr Duncan MD [address] [place] [phone] Medication Refill Social History Tobacco Use Types [...] Description 06/25/2025 1:15 PM CDT Office Visit [facility] - Neurology [facility] [address] [place] [address] Alexandr Duncan MD [address] [place] [address] documented as of this encounter Visit Diagnoses Not on filedocumented in this encounter Care Teams Hospice Home Care Coordinator Relationship Specialty Start Date End Date Shanita Joy MD PCP - General Family Medicine 12/03/21 Alexandr Duncan MD [address] [place] [address] Consulting Physician Neurology 07/19/23 documented as of this encounter
--- OUTSIDE RECORDS SUMMARY | 2025-04-13 11:06 | XMS_ITS | Clinical Summary ---
Author Organization [facility] Address [address], [address] [address] Phone Care Team Providers Care Railcar Foreman Name Role Phone Shanita Joy MD Primary Care Provider Alexandr Duncan MD Unavailable [phone] Allergies No known active allergies Medications atomoxetine (STRATTERA) 40 MG Capsule Take 20 mg by mouth 2 times daily. Active DULoxetine (CYMBALTA) [address] Particles Take 60 mg by mouth daily. Active Bronson-3 Fatty Acids (OMEGA-3 FISH OIL) 1000 MG [...] Take 10 mg by mouth daily. Active Progesterone (PROMETRIUM) 100 MG Capsule Take 100 mg by mouth daily. Hazardous: Medication requires special safe handling and disposal. Active ESTROGENS CONJUGATED PO Take by mouth. A ctive carbidopa-levodop a (SINEMET) 25-100 MG Tablet Take 1 Tablet by mouth 3 times daily. 270 Tablet 1 4 Active primidone (MYSOLINE) 50 MG Tablet TAKE 2 TABLETS BY MOUTH EVERY NIGHT 180 Tablet 1 5 Active Amantadine HCl 100 MG Tablet Take 1 Tablet by mouth daily for 15 days, THEN 1 Tablet 2 times daily for 75 days. 165 Tablet 5 06/24/20 25 Active Active Problems Problem Noted Date Diagnosed Date Parkinson's disease 11/04/2022 IBS (irritable bowel syndrome) Diarrhea Encounters Date Type Department Care Team Description 03/26/2025 11:30 AM CDT Office Visit [facility] Neurology [facility] [address] [place] [address] Alexandr Duncan MD Other chronic pain (Primary Dx); Parkinson's disease without fluctuating manifestations, unspecified whether dyskinesia present (HCC) Discharge Disposition: Discharged to home or Selfcare 03/26/2025 Travel 03/22/2025 Refill [facility] Neurology [facility] [address] [place] [address] Alexandr Duncan MD Medication Refill from Last 3 Months Family History Medical [...] Sign Reading Time Taken Comments Blood Pressure 124/84 03/26/2025 10:57 AM CDT Pulse 107 03/26/2025 10:57 AM CDT Temperature 36.5 C (97.7 F) 03/26/2025 10:57 AM CDT Respiratory Rate 16 09/19/2024 11:30 AM SPANISH TUTOR Oxygen Saturation 100% 03/26/2025 10:57 AM CDT Inhaled Oxygen Concentration - - Weight 73.5 kg (162 lb) 03/26/2025 10:57 AM CDT Height 165.1 cm (5' 5) 03/26/2025 10:57 AM CDT Body Mass Index 26.96 03/26/2025 10:57 AM CDT Plan of Treatment Upcoming Encounters Date Type Department Care Team (Late st Contact Info) Description 06/25/2025 1:15 PM CDT Office Visit [facility] [place] [address] [place] [address] Alexandr Duncan MD [address] [place] [address] Health Maintenance Due Date Last Done Comments DEXA Bone Density 1950 Hepatitis C Virus (HCV) Screening 1950 Mammogram 1950 Cologuard 1997 Immunochemical Fecal Occult Blood 1997 Colonoscopy 10/12/2022 10/12/2017, 06/07/2014 Colorectal Cancer Screening 10/12/2022 SARS-COV-2 Immunization ( season) 2024 12/23/2020, 12/02/2020 Influenza Immunization (#1) 06/04/202507/04, 08/10/2023, 08/04/2022, Additional history exists Respiratory Syncytial Virus (RSV) Immunization (Adult) (1 - 1-dose 75+ series) 2027 DTaP/Tdap/Td Immunization Discontinued 02/26/2021 TdaP Immunization Completed 02/26/2021 Zoster Immunization Completed 10/03/2021, Pneumococcal Immunization (50+ years) Completed 08/04/2022, 02/26/2021 Pneumococcal Immunization Combined Discontinued 08/04/2022, 02/26/2021 Hepatitis B Immunization Aged Out No longer eligible based on patient's age to complete this topic Human Papillomavirus (HPV) Immunization Aged Out No longer eligible based on patient's age to complete this topic Meningococcal Immunization (ACWY) Aged Out No longer eligible based on patient's age to complete this topic Rotavirus Immunization Aged Out No lo nger eligible based on patient's age to complete this topic Procedures Procedure Name Priority Date/Time Associated Diagnosis Comments HM COLONOSCOPY Routine 10/12/2017 from Last 3 Months or Most Recently Relevant to Health Maintenance Results * HM COLONOSCOPY (10/12/2017) Marco A Rangel MD PROCEDURE/MINOR SURGICA L ORDERABLES Final Result from Last 3 Months or Most Recently Relevant to Health Maintenance Insurance MEDICARE C [employer] Care Teams Railcar Foreman Relationship Specialty Start Date End Date Shanita Joy MD PCP - General Family Medicine 12/03/21 Alexandr Duncan MD [address] [place] [address] Consulting Physician Neurology 07/19/23
--- OUTSIDE RECORDS SUMMARY | 2025-04-13 11:06 | XMS_ITS | Encounter Summary ---
Author Organization [facility] Address [address] [place] [address] Phone Care Team Providers Care Mission Coordinator Name Role Phone Shanita Joy MD Primary Care Provider Alexandr Duncan MD Unavailable [phone] Reason for Visit * Reason Comments Medication Refill Encounter Details Date Type Department Care Team (Late Contact Info) Description 06/22/2022 [facility] [address] [place] [phone] Alexandr Duncan MD [address] [place] [address] Medication Refill Social History Tobacco Use Types [...] Description 06/25/2025 1:15 PM CDT Office Visit [facility] [address] [place] [address] Alexandr Duncan MD [address] [place] [address] documented as of this encounter Visit Diagnoses Not on filedocumented in this encounter Care Teams Mission Coordinator Relationship Specialty Start Date End Date Shanita Joy MD PCP - General Family Medicine 12/03/21 Alexandr Duncan MD [address] [place] [address] Consulting Physician Neurology 07/19/23 documented as of this encounter
--- OUTSIDE RECORDS SUMMARY | 2025-04-13 11:06 | XMS_ITS | Encounter Summary ---
Author Organization [facility] Address [address] [place] [address] Phone Care Team Providers Care Social Media Designer Name Role Phone Shanita Joy MD Primary Care Provider Alexandr Duncan MD Unavailable [phone] Reason for Visit * Reason Comments Medication Refill Encounter Details Date Type Department Care Team (Late st Contact Info) Description 06/24/2023 Refill [facility] [address] [place] [address] Alexandr Duncan MD [address] [place] [address] Medication Refill Social History Tobacco Use Types [...] Dept 11/03/22 Office Visit Alexandr Duncan MD [facility] Neurology [facility] 08/03/22 Office Visit Alexandr Duncan MD [facility] Neurology [facility] Showing recent visits within past 365 days and meeting all other requirements Future Appointments Date Type Provider Dept 08/30/23 Appointment Alexandr Duncan MD [facility] Showing future appointments within next 90 days and meeting all other requirements documented in this encounter Plan of Treatment Upcoming Encounters Date Type Department Care Team (Late st Contact Info) Description 06/25/2025 1:15 PM CDT [facility] [address] [place] [address] Alexandr Duncan MD [address] [place] [address] documented as of this encounter Visit Diagnoses Not on filedocumented in this encounter Care Teams Social Media Designer Relationship Specialty Start Date End Date Shanita Joy MD PCP - General Family Medicine 12/03/21 Alexandr Duncan MD [address] [place] [address] Consulting Physician Neurology 07/19/23 documented as of this encounter
--- OUTSIDE RECORDS SUMMARY | 2025-04-13 11:06 | XMS_ITS | Encounter Summary ---
Author Organization [facility] Address [address] [place] [address] Phone Care Team Providers Care Edge Runner Name Role Phone Shanita Joy MD Primary Care Provider Alexandr Duncan MD Unavailable [phone] Reason for Visit * Reason Comments Medication Refill Encounter Details Date Type Department Care Team (Late st Contact Info) Description 12/23/2022 Refill [facility] Neurology [facility] [address] [place] [address] Alexandr Duncan MD [address] [place] [address] Medication Refill Social History Tobacco Use Types [...] Dept 11/03/22 Office Visit Alexandr Duncan MD [facility] Neurology [facility] 08/03/22 Office Visit Alexandr Duncan MD [facility] 04/28/22 Office Visit Alexandr Duncan MD [facility] 01/20/22 Office Visit Alexandr Duncan MD [facility] Showing recent visits within past 365 [...] Visit [facility] [address] [place] [address] Alexandr Duncan MD [address] [place] [address] documented as of this encounter Visit Diagnoses Not on filedocumented in this encounter Care Teams Edge Runner Relationship Specialty Start Date End Date Shanita Joy MD PCP - General Family Medicine 12/03/21 Alexandr Duncan MD [address] [place] [address] Consulting Physician Neurology 07/19/23 documented as of this encounter
--- OUTSIDE RECORDS SUMMARY | 2025-04-13 11:06 | XMS_ITS | Encounter Summary ---
Author Organization [facility] Address [address] [place] [address] Phone Care Team Providers Care Domestic Maid Name Role Phone Shanita Joy MD Primary Care Provider Alexandr Duncan MD Unavailable [phone] Reason for Visit * Reason Comments Medication Refill Encounter Details Date Type Department Care Team (Late Contact Info) Description 03/22/2025 Refill [facility] [address] [place] [phone] Alexandr Duncan MD [address] [place] [address] Medication Refill Social History Tobacco Use Types [...] Description 06/25/2025 1:15 PM CDT Office Visit [facility] [address] [place] [address] Alexandr Duncan MD [address] [place] [address] documented as of this encounter Visit Diagnoses Not on filedocumented in this encounter Care Teams Domestic Maid Relationship Specialty Start Date End Date Shanita Joy MD PCP - General Family Medicine 12/03/21 Alexandr Duncan MD [address] [place] [address] Consulting Physician Neurology 07/19/23 documented as of this encounter
--- OUTSIDE RECORDS SUMMARY | 2025-04-13 11:06 | XMS_ITS | Encounter Summary ---
Author Organization [facility] Address [address] [place] [address] Care Team Providers Care Asphalt Engineer Name Role Phone Gladys Peraza MD Primary Care Provider [phone] Harman Mac MD Primary Care Provider [phone] Encounter Details Date Type Department Care Team (Late st Contact Info) Description 02/02/2011 [facility] Outpatient Visit 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 [address] [place] [address] PCP - General 05/13/10 05/23/18 Harman Mac MD [address] [facility] [address] [place] [address] PCP - General 05/24/18 documented as of this encounter
--- OUTSIDE RECORDS SUMMARY | 2025-04-13 11:06 | XMS_ITS | Encounter Summary ---
Author Organization [facility] Address [address] [place] [address] Phone Care Team Providers Care Drum Reel Cutter Name Role Phone Shanita Joy MD Primary Care Provider Alexandr Duncan MD Unavailable [phone] Reason for Visit * Reason Comments Medication Refill Encounter Details Date Type Department Care Team (Late st Contact Info) Description 01/24/2024 Refill [facility] [address] [place] [phone] Alexandr Duncan MD [address] [place] [phone] Medication Refill Social History Tobacco Use Types [...] Dept 08/30/23 Office Visit Alexandr Duncan MD [facility] Neurology [facility] Showing recent visits within past 270 days and meeting all other requirements Future Appointments Date Type Provider Dept 03/20/24 Appointment Alexandr Duncan MD [facility] Neurology [facility] Showing future appointments within next 90 days [...] Description 06/25/2025 1:15 PM CDT Office Visit [facility]rology [facility] [address] [place] [address] Alexandr Duncan MD [address] [place] [address] documented as of this encounter Visit Diagnoses Not on filedocumented in this encounter Care Teams Drum Reel Cutter Relationship Specialty Start Date End Date Shanita Joy MD PCP - General Family Medicine 12/03/21 Alexandr Duncan MD [address] [place] [address] Consulting Physician Neurology 07/19/23 documented as of this encounter
[2025-04-13 18:50] LABS: Alanine Aminotransferase 21 U/L (6-35); Albumin Level 4.1 g/dL (3.5-5.1); Alkaline Phosphatase 56 U/L (38-126); Anion Gap 7 mmol/L (4-12); Aspartate Amino Transferase 47 U/L (14-36); Bilirubin,Total 0.3 mg/dL (0.2-1.3); Blood Urea Nitrogen 9 mg/dL (7-17); Calcium 9.2 mg/dL (8.4-10.2); Carbon Dioxide 26 mmol/L (22-30); Chloride 103 mmol/L (98-107); Estimated Glomerular Filt Rate > 60; Glucose 98 mg/dL (65-110); Potassium 4.1 mmol/L (3.4-5.0); Sodium 136 mmol/L (137-145); Total Protein 6.7 g/dL (6.3-8.2)
== END 2025-04-13 11:00 | disposition home or self-care (01) ==
PROVIDERS: PCP Family Medicine; Visit Provider Family Medicine
DX: N28.1 Cyst of kidney, acquired (principal); I10 Essential (primary) hypertension
CPT/HCPCS: 36415; 80053